=== PATIENT | female | born 1950 | race Caucasian/White ===

== ENCOUNTER → 2017-02-07 | Outpatient (CLI) | payer BC ==
[~2017-02-07] MED LIST: ANT25 PO; ASTNS; LISI-461 PO
== END | disposition home or self-care (01) ==
LOC: C.PAPS 09:23
PROVIDERS: ATTEND Obstetrics & Gynecology
DX: Z01.419 Encounter for gynecological examination (general) (routine) without abnormal findings (principal)

== ENCOUNTER → 2017-06-05 | Outpatient (CLI) | payer OTHER, BC ==
[2017-06-05 12:23] LABS: BASO ABS # 0.05 K/uL (0-0.2); COMPLETE YES; EOS % 4.9 %; HEMATOCRIT 39.7 % (37-47); IG% 0.2 %; LYMPH % 21.3 %; LYMPH ABS # 1.04 K/uL (1.2-3.4); MEAN CELL VOLUME 89.8 fL (80-100); MEAN CORPUSCULAR HEMOGLOBIN 30.3 pg (25-34); MEAN CORPUSCULAR HGB CONC 33.8 g/dl (32-36); MEAN PLATELET VOLUME 9.6 fL (7.4-10.4); NEUT % 62.6 %; PLATELET COUNT 176 K/uL (130-400); RED BLOOD COUNT 4.42 M/uL (4.2-5.4); WHITE BLOOD COUNT 4.89 K/uL (4.8-10.8)
[2017-06-05 13:03] LABS: ALT/SGPT 31 U/L (12-78); AST/SGOT 21 U/L (15-37); BLOOD UREA NITROGEN 16 mg/dl (7-18); BUN/CREATININE RATIO 25.6 (10-20); CALCIUM 9.2 mg/dl (8.5-10.1); CARBON DIOXIDE 29 mmol/L (21-32); CHLORIDE 106 mmol/L (98-107); CREATININE 0.64 mg/dl (0.60-1.20); GLUCOSE 80 mg/dl (70-99); POTASSIUM 3.8 mmol/L (3.5-5.1); SODIUM 140 mmol/L (136-145)
[2017-06-05 13:15] LABS: ALB/GLOB RATIO 1.3 (0.9-2); ALKALINE PHOSPHATASE 63 U/L (45-117); CHOLESTEROL 186 mg/dl (0-200); CHOLESTEROL/HDL RATIO 1.7; HDL CHOLESTEROL 108 mg/dl; LDL CHOLESTEROL CALCULATED 68 mg/dl; TRIGLYCERIDES 49 mg/dl (0-150); VERY LOW DENSITY LIPOPROT CALC 10 mg/dl
[2017-06-05 14:01] LABS: URINE APPEARANCE CLEAR (CLEAR); URINE BILIRUBIN NEG (NEG); URINE COLOR YELLOW; URINE NITRITE NEG (NEG); URINE PH 6.5 (4.5-7.5); URINE SPECIFIC GRAVITY 1.011 (1.000-1.030); UROBILINOGEN NEG (NEG)
[2017-06-05 14:14] LABS: MANUAL MICROSCOPIC REQUIRED? NO; REVIEW REQ? NO
== END | disposition home or self-care (01) ==
LOC: C.LAB1850 10:42
PROVIDERS: ATTEND Internal Medicine Pulmonary Disease
DX: Z00.00 Encounter for general adult medical examination without abnormal findings (principal); I10 Essential (primary) hypertension; M51.36 Other intervertebral disc degeneration, lumbar region; R05 Cough; J45.909 Unspecified asthma, uncomplicated; M70.60 Trochanteric bursitis, unspecified hip

== ENCOUNTER → 2017-11-16 | Outpatient (CLI) | payer OTHER, BC ==
--- NOTE | 2017-11-16 12:03 | DIAGNOSTIC IMAGING REPORT ---
R ELBOW MIN 3 VIEWS ROUTINE CLINICAL HISTORY: Medial epicondylitis. COMPARISON: None FINDINGS: Alignment of the right elbow is anatomic. No joint effusion or fracture is identified. No osseous lesion is identified. Slight irregularity of the lateral epicondyle is chronic. There may be minimal soft tissue swelling overlying the olecranon. Joint spaces are preserved. IMPRESSION: 1. No acute fracture or joint effusion of the right elbow. 2. No significant osseous abnormality of the right elbow. Electronically signed by: Toni Crowley M.D. 11/16/2017 12:01 PM Dictated Date/Time: 11/16/2017 12:00 PM
--- NOTE | 2017-11-16 12:06 | DIAGNOSTIC IMAGING REPORT ---
C-SPINE ROUTINE 4 OR 5 VIEWS CLINICAL HISTORY: 67 years-old Female presenting with M50.90 Disc disorder of cervical [id number] Cervical radiculop. TECHNIQUE: Lateral, bilateral oblique, frontal, and open-mouth odontoid views of the cervical spine were obtained. COMPARISON: 05/11/2014. FINDINGS: Straightening of normal cervical lordosis with slight reversal in the mid cervical spine likely secondary to degenerative change. Mild vertebral body height loss of C5 may also be degenerative in etiology. Mild intervertebral disc height loss at C4-5 through C6-7, where there are disc osteophyte complexes. Posterior bony spurring suspected at C6-7. No radiographic evidence of acute fracture or subluxation. No prevertebral soft tissue swelling. Atlantodental interval normal. No radiographic evidence of significant osseous neural foraminal narrowing. Lateral masses of C1 articulate normally with C2. Lung apices clear. IMPRESSION: Multilevel degenerative changes of the cervical spine with disc osteophyte complexes from C4-5 through C6-7. Electronically signed by: Dagoberto Araiza M.D. 11/16/2017 12:04 PM Dictated Date/Time: 11/16/2017 12:02 PM
== END | disposition home or self-care (01) ==
LOC: C.RAD1850 11:19
PROVIDERS: ATTEND Physician Assistant Medical
DX: M77.00 Medial epicondylitis, unspecified elbow (principal); M50.90 Cervical disc disorder, unspecified, unspecified cervical region; M54.12 Radiculopathy, cervical region

== ENCOUNTER → 2017-11-20 | Outpatient (CLI) | payer OTHER, BC ==
--- NOTE | 2017-11-20 15:29 | MAMMOGRAPHY REPORT ---
BILATERAL DIGITAL SCREENING MAMMOGRAM TOMOSYNTHESIS WITH CAD: 11/20/2017 CLINICAL HISTORY: Routine screening. Patient has no complaints. TECHNIQUE: Breast tomosynthesis in addition to standard 2D mammography was performed. Current study was also evaluated with a Computer Aided Detection (CAD) system. COMPARISON: Comparison is made to exams dated: 11/17/2016 mammogram, 12/01/2015 mammogram, 11/16/2015 mammogram, 11/13/2014 mammogram, 11/12/2013 mammogram, and 11/11/2012 mammogram - [facility]. BREAST COMPOSITION: The tissue of both breasts is extremely dense, which lowers the sensitivity of m ammography. FINDINGS: There are a few scattered benign-appearing microcalcifications in the breasts. No suspicio us mass, architectural distortion or cluster of suspicious microcalcifications is seen. IMPRESSION: ACR BI-RADS CATEGORY 1: NEGATIVE There is no mammographic evidence of malignancy. A 1 year screening mammogram is recommended. The pa tient will receive written notification of the results. Approximately 10% of breast cancers are not detected with mammography. A negative mammographic report should not delay biopsy if a clinically suggestive mass is present. Xenia Pool M.D. ay/:11/20/2017 12:25:50 Scoop Machine Operator: Shireen FIGUEROA)([place]), [facility] letter sent: Normal 1/2 BI-RADS Code: ACR BI-RADS Category 1: Negative
== END | disposition home or self-care (01) ==
LOC: C.MAMM 11:22
PROVIDERS: ATTEND Internal Medicine Pulmonary Disease
DX: Z12.31 Encounter for screening mammogram for malignant neoplasm of breast (principal)

== ENCOUNTER → 2018-03-11 | Outpatient (CLI) | payer OTHER, BC ==
[2018-03-11 13:43] LABS: BLOOD UREA NITROGEN 14 mg/dl (7-18); CREATININE 0.65 mg/dl (0.60-1.20)
== END | disposition home or self-care (01) ==
LOC: C.LAB1850 11:45
PROVIDERS: ATTEND Physician Assistant
DX: R51 Headache (principal); H90.3 Sensorineural hearing loss, bilateral; H81.11 Benign paroxysmal vertigo, right ear

== ENCOUNTER → 2018-03-14 | Outpatient (CLI) | payer OTHER, BC ==
[~2018-03-14] MED LIST changes: +GADAVIST IV PRN
--- NOTE | 2018-03-14 18:15 | DIAGNOSTIC IMAGING REPORT ---
BRAIN COMBO FOR IAC HISTORY: 68 years-old Female R51 [id number] Sensorineural hearing loss (SNHL) of both ears acute headache with hearing loss COMPARISON: None available TECHNIQUE: Multiplanar multisequence MRI of the brain was obtained both with and without the use of 7 mL Gadavist utilizing institutional internal auditory canal protocol. FINDINGS: Large [id number] nutrition counselor localizer images demonstrate no acute abnormality. No restricted diffusion to suggest acute or subacute infarction. Midline structures including the corpus callosum, brainstem, optic chiasm, pituitary and pineal glands appear unremarkable on the sagittal T1 series. There is no cerebellar tonsillar herniation. Degenerative changes of the imaged cervical spine are noted. No acute intracranial hemorrhage, midline shift, abnormal extra-axial collections, hydrocephalus or intracranial mass. No significant brain parenchymal signal abnormalities. Major flow voids at the level of the skull base appear patent. Orbits are symmetric and unremarkable. Mastoid air cells and paranasal sinuses appear generally clear. Scalp, calvarium and soft tissues are also within normal limits. No cerebellar pontine angle mass identified. Courses of the 7th and 8th cranial nerves appear unremarkable. No mass identified within either internal auditory canal. The cisternal portions of the bilateral 5th cranial nerves appear normal. There is no abnormal intra-axial or extra-axial enhancement identified. IMPRESSION: 1. No acute intracranial abnormality identified. 2. Normal appearance of the bilateral internal auditory canals, 7th and 8th cranial nerves without abnormal intra-axial or extra-axial enhancement. The above report was generated using voice recognition software. It may contain grammatical, syntax or spelling errors. Electronically signed by: Ty Perez M.D. 03/14/2018 6:14 PM Dictated Date/Time: 03/14/2018 6:09 PM
== END | disposition home or self-care (01) ==
LOC: C.MRI 16:40
PROVIDERS: ATTEND Physician Assistant
DX: H81.11 Benign paroxysmal vertigo, right ear (principal); H90.3 Sensorineural hearing loss, bilateral; R51 Headache

== ENCOUNTER 2019-01-01 08:11 | Inpatient (IN) ==
--- NOTE | 2018-12-12 09:49 | PAT Medication Instructions ---
Medication Instructions Date of Service December 12, 2018 Home Medications ibuprofen [Advil] 200 - 400 mg PO QID PRN ibuprofen-diphenhydramine [Advil PM] 1 cap PO HS losartan 50 mg PO QAM montelukast [Singulair] 10 mg PO QAM pregabalin [Lyrica] 75 mg PO QPM ASK your surgeon for instructions ibuprofen [Advil] 200 - 400 mg PO QID PRN ibuprofen-diphenhydramine [Advil PM] 1 cap PO HS DO NOT take the morning of surgery losartan 50 mg PO QAM montelukast [Singulair] 10 mg PO QAM Take evening before surgery pregabalin [Lyrica] 75 mg PO QPM Other Notes If you have any questions please call us at [phone] or [phone] or [phone] or [phone]
--- NOTE | 2018-12-12 09:59 | Anesthesiology Consultation ---
Date of Service December 12, 2018 Assessment & Plan (1) Encounter for pre-operative examination: Chart Review Chart Review: Acceptable Risk for Surgery and Patient seen in Pre Admission Testing Teaching & Discussion Pre-Anesthesia Teaching/Discussion Notes: Instructed NPO after midnight before surgery,except medications with 15 cc of water. Medication instructions provided according to the PAT guidelines. History Surgery Operation Date: 01/01/19 10:05 Proposed Procedures p C6 Corpectomy, C5-C7 Anterior Fusion - Smith Thacker DO Height/Weight Height: 5 ft 6.5 in Weight: 52.9 kg Allergies Allergy/AdvReac Type Severity Reaction Status Date / Time No Known Allergies Allergy Unknown PT STATES Verified 12/06/18 11:47 NOT ALLERGIC TO PCN narcotics AdvReac CONSTIPATIO Uncoded 12/12/18 10:18 N Medications Home Medications Medication Instructions Recorded Confirmed Last Taken ibuprofen [Advil] 200 - 400 mg PO QID PRN 12/06/18 12/06/18 Unknown ibuprofen-diphenhydramine cit 1 cap PO HS 12/06/18 12/06/18 Unknown [Advil PM] losartan 50 mg PO QAM 12/06/18 12/06/18 Unknown montelukast [Singulair] 10 mg PO QAM 12/06/18 12/06/18 Unknown pregabalin [Lyrica] 75 mg PO QPM 12/06/18 12/06/18 Unknown doxylamine succinate [Unisom 1 tab PO HS PRN 12/12/18 12/12/18 Unknown (doxylamine)] Past Medical History Medical History Degenerative disc disease Hypertension Spinal stenosis Vertigo Past Surgical History Surgical History Fusion of spine L4 L5 History of arthroscopy B/L SHOULDER FOR BONE SPURS History of facial surgery FACE LIFT History of thumb surgery B/L [facility] JOINT ARTHROPLASTY Past Anesthesia History No Family Hx of Anesthesia Complications and Other "Slow to wake." No known history of reintubation. Patient states issue with narcotic induced constipation previously. History of PONV No Motion Sickness Screening History of Motion Sickness: No Social History Smoking Status: Former smoker tobacco type: cigarettes Smoking cigarettes per day: QUIT 40 YEARS AGO; 2PPD X 3-4 YEARS Do You Dip or Chew Tobacco: No Hx Alcohol Use: Yes Alcohol type: other alcohol intake frequency: holidays/special occasions only Hx Substance Use: No substance use type: does not use Exercise / Class Metabolic Activity II 4-5 Yardwork/Stairs/Walk up hill Review of Systems Cervicalgia with LUE radiculopathy/neuropathy. Patient denies chest pain, shortness of breath, dyspnea on exertion, reflux, cough, wheezing, palpitations. Physical Exam Vital Signs VITALS BP 142/91 P 74 TEMP 98.7 SP02 100%RA RESP 18 Full neck and c-spine range of motion. Cervicalgia with extension. Full TMJ range of motion. TMD 3 finger breaths Mallampati Score 1 Dentition: intact, several crowns Lungs: clear throughout to auscultation Cardiac: regular rate and rhythm, no murmurs noted Spine: normal Carotid arteries: negative bruit Extremities: no edema Testing Electrocardiogram Date: 12/12/18 NSR at 64bpm. ZAIRA. Rightward axis. Chest X-Ray Date: 12/12/18 Findings: + NAD Thoracolumbar scoliosis. Laboratory Results 12/12/18 10:13 12/12/18 10:13 Blood Type O Positive 12/12/18 10:13 Antibody Screen NEGATIVE 12/12/18 10:13 PT 10.4 Seconds (9.0-12.0) 12/12/18 10:13 INR 1.0 (0.9-1.1) 12/12/18 10:13 APTT 26.2 Seconds (21.0-31.0) 12/12/18 10:13 Urine Color Yellow 12/12/18 10:13 Urine Appearance Clear (Clear) 12/12/18 10:13 Urine pH 6.5 (4.5-7.5) 12/12/18 10:13 Ur Specific [place] 1.006 (1.000-1.030) 12/12/18 10:13 Urine Protein Negative (Negative) 12/12/18 10:13 Urine Glucose (UA) Negative (Negative) 12/12/18 10:13 Urine Ketones Negative (Negative) 12/12/18 10:13 Urine Nitrite Negative (Negative) 12/12/18 10:13 Ur Leukocyte Esterase Negative (Negative) 12/12/18 10:13 Surgeon made aware of low WBC.
--- NOTE | 2018-12-12 10:05 | PAT Medication Instructions ---
Medication Instructions Date of Service December 12, 2018 Home Medications ibuprofen [Advil] 200 - 400 mg PO QID PRN ibuprofen-diphenhydramine cit 1 cap PO HS losartan 50 mg PO QAM montelukast [Singulair] 10 mg PO QAM pregabalin [Lyrica] 75 mg PO QPM doxylamine succinate [Unisom 1 tab PO HS PRN Take morning of surgery With a small sip of water, OTHERWISE NOTHING TO EAT OR DRINK AFTER MIDNIGHT: Insulin Dependent Diabetic Patients * Test your blood sugar the morning of surgery * If Blood Sugar is GREATER THAN 150, take HALF of your regular dose of: * If Blood Sugar is LESS THAN 150, DO NOT TAKE ANY: Other Notes If you have any questions please call us at [phone] or [phone] or [phone] or [phone]
--- NOTE | 2018-12-12 10:32 | XRay Report ---
XR chest Pre-admission PA/Lat CLINICAL HISTORY: Preoperative chest COMPARISON STUDY: 05/04/2016 FINDINGS: There is a thoracolumbar scoliosis. The cardiac and mediastinal contours remain normal. The re is no focal pulmonary consolidation. There is no failure. There are no pleural effusions.[ IMPRESSION: No active disease in the chest. Electronically signed by: Mo Colvin M.D. 12/12/2018 10:30 AM
[2018-12-12 11:36] LABS: Basophils # (auto) 0.04 K/uL (0-0.2); Eosinophils # (auto) 0.17 K/uL (0-0.5); Eosinophils % (auto) 4.3 %; Hematocrit (blood only) 41.5 % (37-47); Lymphocytes # (auto) 1.03 K/uL (1.2-3.4); Lymphocytes % (auto) 26.3 %; Mean Corpuscular Hgb Conc 33.7 g/dL (32-36); Mean Corpuscular Volume 87.6 fL (80-100); Mean Platelet Volume 9.9 fL (7.4-10.4); Monocytes # (auto) 0.44 K/uL (0.11-0.59); Monocytes % (auto) 11.2 %; Neutrophils # (auto) 2.24 K/uL (1.4-6.5); Neutrophils % (auto) 57.2 %; Platelet Count 207 K/uL (130-400); RDW Standard Deviation 41.9 fL (36.4-46.3); Red Blood Count 4.74 M/uL (4.2-5.4); White Blood Count 3.92 K/uL (4.8-10.8)
[2018-12-12 11:43] LABS: BUN Creatinine Ratio 21.3 (10-20); Calcium 9.4 mg/dl (8.5-10.1); Est GFR (African American) 106.2; Est GFR (Non-African American) 91.6; Potassium 3.7 mmol/L (3.5-5.1)
[2018-12-12 11:50] LABS: Partial Thromboplastin Time 26.2 Seconds (21.0-31.0); Prothrombin Time 10.4 Seconds (9.0-12.0)
[2018-12-12 11:55] LABS: Appearance Urine Clear (Clear); Bilirubin Urine Negative (Negative); Color Urine Yellow; Glucose Urine UA Negative (Negative); Ketones Urine Negative (Negative); Leukocyte Esterase Urine Negative (Negative); Nitrite Urine Negative (Negative); Protein Urine Negative (Negative); Specific Gravity Urine 1.006 (1.000-1.030); Urobilinogen Urine Negative (Negative); pH Urine 6.5 (4.5-7.5)
[~2019-01-01 08:11] MED LIST changes: +ACETAMINOPHEN 500 MG TAB PO SCH; -ANT25 PO; -ASTNS; +CEFAZOLIN 1000MG 1,000 MG/7.5 ML SYR IV SCH; +CeleBREX 200 MG CAP PO SCH; +GABAPENTIN 300 MG PO SCH; -GADAVIST IV PRN; +HYDROmorphone INJ 2 MG/ML SYR/VIAL ONE; -LISI-461 PO; +LR 15ML/HR IV SCH; +MIDAZOLAM HCL 1 MG/ML 2ML VIAL ONE; +fentaNYL citrate 100 MCG/2 ML VIAL ONE
[2019-01-01] MEDS ORDERED: fentaNYL citrate 100 MCG/2 ML VIAL ONE ×3 (08:21→11:34)
[2019-01-01] MEDS ORDERED: HYDROmorphone INJ 2 MG/ML SYR/VIAL ONE (08:22)
[2019-01-01] MEDS ORDERED: PROPOFOL IV EMULSION 10 MG/ML 20 ML VIAL IV ONE (08:23)
[2019-01-01] MEDS ORDERED: LIDOCAINE HCL 2% 2 ML VIAL/AMP(20MG/ML) INFIL ONE (08:23)
[2019-01-01] MEDS ORDERED: ONDANSETRON INJ 2 MG/ML 2 ML VIAL ONE (08:23)
[2019-01-01] MEDS ORDERED: GLYCOPYRROLATE 0.2 MG/ML VIAL ONE (08:23)
[2019-01-01] MEDS ORDERED: DEXAMETHASONE SOD INJ 4 MG/ML VIAL ONE (08:23)
[2019-01-01] MEDS ORDERED: NEOSTIGMINE METHYLSULFATE 1 MG/ML 10ML VIAL ONE (08:23)
[2019-01-01] MEDS ORDERED: ePHEDrine sulfate 50 MG/ML AMP IV PRN (09:09)
[2019-01-01] MEDS ORDERED: ONDANSETRON INJ 2 MG/ML 2 ML VIAL IV PRN ×2 (09:09→13:34)
[2019-01-01] MEDS ORDERED: fentaNYL citrate 100 MCG/2 ML VIAL IV PRN (09:09)
[2019-01-01] MEDS ORDERED: PROMETHAZINE HCL 12.5 MG in SODIUM CHLORIDE 0.9% 50 ML IV PRN (09:09)
[2019-01-01] MEDS ORDERED: HYDROmorphone INJ 1 MG/ML SYRINGE IV PRN (09:09)
[2019-01-01] MEDS ORDERED: PHENYLEPHRINE 100MCG/ML 5ML SYR IV PRN (09:09)
[2019-01-01] MEDS ORDERED: ATROPINE SULFATE 0.1 MG/ML 10ML SYR IV PRN (09:09)
--- NOTE | 2019-01-01 09:30 | History & Physical Bridge Note ---
Date of Service January 01, 2019 History & Physical Bridge Note I have examined the patient, reviewed the History & Physical and in the interval since the performance of the History & Physical I have noted the following changes of clinical significance: no changes noted
--- NOTE | 2019-01-01 09:31 | History & Physical Report ---
Date of Service January 01, 2019 Assessment & Plan (1) Cervical stenosis of spinal canal: C6 corpectomy fusion C5-C7 Present on Admission?: Yes History of Present Illness Chief Complaint: Neck and arm pain Primary Care Provider: Baltazar Akhtar MD This is a 68-year-old female with chronic persistent neck and arm pain. After failing extensive course of nonoperative care is here for surgical intervention. Allergies Allergy/AdvReac Type Severity Reaction Status Date / Time No Known Allergies Allergy Unknown PT STATES Verified 01/01/19 09:06 NOT ALLERGIC TO PCN narcotics AdvReac CONSTIPATIO Uncoded 01/01/19 09:06 N Home Medications Home Medications Medication Instructions Recorded Confirmed Type ibuprofen [Advil] 200 - 400 mg PO QID PRN 12/06/18 01/01/19 History ibuprofen-diphenhydramine cit 1 cap PO HS 12/06/18 01/01/19 History [Advil PM] losartan 50 mg PO QAM 12/06/18 01/01/19 History montelukast [Singulair] 10 mg PO QAM 12/06/18 01/01/19 History pregabalin [Lyrica] 75 mg PO QPM 12/06/18 01/01/19 History doxylamine succinate [Unisom 1 tab PO HS PRN 12/12/18 01/01/19 History (doxylamine)] Past Med/Surg History Medical History Degenerative disc disease Hypertension Spinal stenosis Vertigo Surgical History Fusion of spine L4 L5 History of arthroscopy B/L SHOULDER FOR BONE SPURS History of facial surgery FACE LIFT History of thumb surgery B/L [facility] JOINT ARTHROPLASTY Social History Current Living Situation: Alone Other Information That Helps Us Care for You: No Feels Safe at Home: Yes Safety Concerns: Feels Safe At This Time Smoking Status: Former smoker Tobacco Type: cigarettes Cigarettes per Day: QUIT 40 YEARS AGO; 2PPD X 3-4 YEARS Do You Dip or Chew Tobacco: No Hx Alcohol Use: Yes Alcohol type: other Alcohol Intake Frequency: holidays/ special occasions only Hx Substance Use: No Beliefs That Will Affect Care: None Preferred Language: Latvian Communication Ability: Effective [employer] Library Media Specialist Required: No Physical Exam 2 Vital Signs (Past 24 Hours): Last Vital Signs Temp 37.1 C 01/01/19 09:20 Pulse 73 01/01/19 09:20 Resp 18 01/01/19 09:20 BP 145/93 H 01/01/19 09:20 Pulse Ox 99 01/01/19 09:20 Results & Data Medications Administered Acetaminophen (Tylenol) 1,000 mg PO PREOP JUANA Stop: 01/01/19 18:00 Last Admin: 01/01/19 09:15 Dose: 1,000 mg Celecoxib (Celebrex) 200 mg PO PREOP JUANA Stop: 01/01/19 18:00 Last Admin: 01/01/19 09:13 Dose: 200 mg Gabapentin (Neurontin) 300 mg PO PREOP JUANA Stop: 01/01/19 18:00 Last Admin: 01/01/19 09:15 Dose: 300 mg Lactated Ringer's (Lr) 1,000 mls @ 15 mls/hr IV .Q24H JUANA Stop: 01/02/19 05:59 Last Admin: 01/01/19 09:00 Dose: 15 mls/hr
[2019-01-01] MEDS ORDERED: BACITRACIN INJ 50,000 UNIT VIAL ONE (09:56)
[2019-01-01] MEDS ORDERED: LARYING-O-JET KIT (LTA) ONE ×2 (10:39→11:26)
[2019-01-01] MEDS ORDERED: PHENYLEPHRINE 100MCG/ML 5ML SYR ONE ×2 (10:39→11:26)
[2019-01-01] MEDS ORDERED: ePHEDrine sulfate 50 MG/ML SYR ONE (11:26)
[2019-01-01] MEDS ORDERED: FLOSEAL HEMOSTATIC MATRIX 10ML TOP ONE (11:32)
--- NOTE | 2019-01-01 11:34 | Operative Report ---
Post Operative Report Pre & Post Diagnosis Operation Date: 01/01/19 10:05 Pre-Op Diagnosis: Cervical spinal stenosis with myeloradiculopathy Post-Op Diagnosis: Same Procedure Operation Date: 01/01/19 10:05 Actual Procedures #1 anterior cervical corpectomy C6. #2 anterior cervical arthrodesis C5-C7. # 3 placement of peek cage 23 mm in height C5-C7. #4 placement of locally harvested morselized autograft combined with DBM and interbody cage. #5 application carmen plate and screws from C5-C7. Surgeon Smith Thacker, Psychiatric Social Worker Supervisor Winifred Leahy Estimated Blood Loss 25 Findings Consistent with Post-Op Diagnosis Specimens None Description of Procedure Patient was met with preoperatively case discussed all questions addressed. After informed consent obtained patient was taken to the operative suite underwent intubation and placed in supine position Cirilo table the head Lopez head of english. All bony prominences well-padded eyes inspected to ensure no external pressure placed upon but this point the anterior cervical spine was prepped and draped in a sterile fashion. The assistance of fluoroscopy to verify the C6 vertebral body and a transverse incision was placed along the right anterior aspect of the cervical spine overlying this region. Sharp dissection the assistance of bipolar cautery was performed down to and exposing the anterior cervical spine from C5-C7. Self retainer retractors placed. Then performed a complete discectomy of C5-6 out to the uncovertebral joints bilaterally followed by C6-7 out to the uncovertebral S bilaterally. [place] distracting pins were then placed in C5 and C7 to distract across the see 6 vertebral body. A complete corpectomy was then performed including removal of all posterior annular fibers longitudinal ligament and bilateral foraminotomies addressing all stenosis. Endplates were then burred to subcortical bleeding bone and a 23 mm peek cage filled with locally harvested morselized autograft and DBM tamped in position. Distraction apparatus was removed all anterior osteophytes produce smooth cortical surface and a carmen plate and screws applied with the assistance of fluoroscopy. Incision was then copious irrigated explored to ensure no damage to surrounding structures remaining bleeding. 10 round LIANNE drain inserted. Incision was then closed with 2 Vicryl in a fashion of 4-0 Monocryl for final skin closure. Steri -Strips sterile dressings placed. Patient will continue to PACU stable disc. Please note Winifred Leahy present throughout the entire procedure involved in patient positioning complex portions of the surgeon Fransen closure. I attest to the content of the Intraoperative Record and any orders documented therein. Any exceptions are noted below.
--- NOTE | 2019-01-01 12:05 | Fluoroscopy Report ---
FL cervical 2-3V CLINICAL HISTORY: C6 CORPECTOMY C5-C7 ANTERIOR FUSION COMPARISON STUDY: Cervical spine radiographs November 16, 2017. FLUOROSCOPY TIME: 11 seconds. FLUOROSCOPIC IMAGES: 2 FINDINGS: These images demonstrate a C6 corpectomy and C5-C7 anterior discectomy and fusion. Hardware is intact. Surgical drain is noted. IMPRESSION: Fluoroscopic images demonstrating a C6 corpectomy and C5-C7 anterior discectomy and fusi on. Electronically signed by: Toni Crowley M.D. 01/01/2019 12:04 PM
--- NOTE | 2019-01-01 13:10 | Anesthesiology Progress Note ---
Date of Service January 01, 2019 Anesthesia Post Procedure Vital Signs Vital Signs: Temp Pulse Pulse Resp BP Pulse Ox 01/01/19 12:55 61 18 139/82 100 01/01/19 12:45 36.8 C 55 L 14 141/87 H 100 01/01/19 12:35 55 L 15 137/81 100 01/01/19 12:25 74 14 143/88 H 100 01/01/19 12:15 55 L 12 135/82 100 01/01/19 12:05 68 19 149/90 H 100 01/01/19 11:55 80 21 154/92 H 100 01/01/19 11:49 36.4 C L 70 16 148/87 H 100 01/01/19 09:20 37.1 C 73 18 145/93 H 99 Pain Intensity Left Arm: Pain Intensity: 3 Neck: Pain Intensity: 0 Notes Mental Status: alert / awake / arousable Patient Amnestic to Procedure: Yes Nausea / Vomiting: adequately controlled Pain: adequately controlled Airway Patency, RR, SpO2: stable & adequate BP & HR: stable & adequate Hydration State: stable & adequate Anesthetic Complications: no major complications apparent
[2019-01-01] MEDS ORDERED: HYDROmorphone INJ 0.5 MG/0.5 ML SYR IV PRN (13:34)
[2019-01-01] MEDS ORDERED: DEXAMETHASONE SOD PHOSPHATE 8 MG in SYRINGE 0 ML IV PRN (13:34)
[2019-01-01] MEDS ORDERED: RACEPINEPHRINE 2.25% NEBU SOLN 0.5 ML VIAL INH PRN (13:34)
[2019-01-01] MEDS ORDERED: MAGNESIUM HYDROXIDE SUSP 30 ML UDC PO PRN (13:34)
[2019-01-01] MEDS ORDERED: ACETAMINOPHEN 1,000 MG/100 ML VIAL IV PRN (13:34)
[2019-01-01] MEDS ORDERED: NALOXONE HCL 0.4 MG/1 ML VIAL/CARP IV PRN (13:34)
[2019-01-01] MEDS ORDERED: DiphenhydrAMINE HCL 50 MG/ML VIAL IV PRN (13:34)
[2019-01-01] MEDS ORDERED: LORazepam 0.5 MG/1 ML VIAL IV PRN (13:34)
[2019-01-01] MEDS ORDERED: LORazepam 0.5 MG TAB PO PRN (13:34)
[2019-01-01] MEDS ORDERED: DO NOT ADMINISTER FLU VACCINE PRN (13:34)
[2019-01-01] MEDS ORDERED: DO NOT ADMINISTER PNEUMOCOCCAL VACCINE PRN (13:34)
[2019-01-01] MEDS: SODIUM CHLORIDE 0.9% 1000ML 1,000 ML IV SCH (14:26)
[2019-01-01] MEDS ORDERED: SCOPOLAMINE 1.5 MG TDSY TD SCH (14:30)
[2019-01-01] MEDS: CHECK SCOPOLAMINE PATCH PLACEMENT SCH (16:08)
[2019-01-01] MEDS: OXYCODONE HCL IR 5 MG TAB (IMMEDIATE RELEASE) PO PRN (16:15)
[2019-01-01] MEDS: CEFAZOLIN 1000MG 1,000 MG/7.5 ML SYR IV SCH (18:48)
[2019-01-01] MEDS: DOCUSATE SODIUM 100 MG CAP PO SCH (20:12)
[2019-01-01] MEDS ORDERED: PREGABALIN 75 MG CAP PO SCH (21:00)
[2019-01-02] MEDS: OXYCODONE HCL IR 5 MG TAB (IMMEDIATE RELEASE) PO PRN ×4 (00:05→15:16)
[2019-01-02] MEDS: CHECK SCOPOLAMINE PATCH PLACEMENT SCH ×2 (00:06→08:56)
[2019-01-02] MEDS: CEFAZOLIN 1000MG 1,000 MG/7.5 ML SYR IV SCH ×2 (02:14→09:07)
[2019-01-02] MEDS ORDERED: Nursing to Pharmacy Communication ONE (04:50)
[2019-01-02] MEDS: SODIUM CHLORIDE 0.9% 1000ML 1,000 ML IV SCH (06:00)
--- NOTE | 2019-01-02 08:50 | Discharge Summary ---
Date of Service January 02, 2019 Admission HPI Per Admitting Provider This is a 68-year-old female with chronic persistent neck and arm pain. After failing extensive course of nonoperative care is here for surgical intervention. Principal Diagnosis Cervical spinal stenosis with myeloradiculopathy. Discharge Data Allergies Allergy/AdvReac Type Severity Reaction Status Date / Time No Known Allergies Allergy Unknown PT STATES Verified 01/01/19 09:06 NOT ALLERGIC TO PCN narcotics AdvReac CONSTIPATIO Uncoded 01/01/19 09:06 N Procedures Performed Operation Date: 01/01/19 10:05 Actual Procedures p C6 Corpectomy, C5-C7 Anterior Fusion(Not Applicable) - Smith Thacker DO Ordered Studies 01/01/19 10:05 FL cervical 2-3V Routine FL fluoroscopy <1hr Routine Hospital Course (1) Cervical stenosis of spinal canal: Patient underwent anterior cervical corpectomy and fusion tolerated as well as taken to the orthopedic floor postoperative. Postop day #1 arm symptoms markedly improved swallowing well. No hoarseness. Subsequently discharged home. Discharge orders and instructions from the chart for further review. Total Time Total Time Spent Total Time Spent (In Minutes): Not applicable Discharge Plan Discharge Items Patient Disposition: Home - Self-Care Reason For Visit: CERVICAL SPINAL STENOSIS Discharge Diagnosis: Cervical spinal stenosis with myeloradiculopathy Discharge Goals: Improve function Activity: Per 'Additional Instructions' section Non-emergency contact: Primary Care Provider Call non-emergency contact if: you have any medication questions Follow-up/Referrals: Baltazar Akhatr MD [Primary Care Provider] - Diet: Regular Addtl Provider Instructions: ACTIVITY RECOMMENDATIONS: SELF CARE INSTRUCTIONS AFTER CERVICAL FUSIONS 1. No smoking. Smoking drastically decreases the chance of a solid fusion. 2. No bending, lifting more than 5 pounds, or twisting (roll like a log when turning in bed). 3. You may shower 3 days after surgery. Thoroughly dry wound. Do not soak in the tub. 4. Cervical collar: Must be worn at all times including sleeping. You may remove the brace only to bath, eat and if you are sitting in a recliner. 5. Please walk as much as you can for exercise. Gradually increase the distance that you walk as your endurance increases. SPECIAL CARE INSTRUCTIONS: VERY IMPORTANT TO READ AND REVIEW A. Do not take any anti-inflammatory medications (i.e. Indocin, Advil, Aspirin, Naprosyn, Aleve, Motrin, etc.) as these may inhibit the chance of a solid fusion. Tylenol is okay to take. B. Your surgical incision has been closed with a cosmetic suture under the skin that will dissolve in about 6 weeks. In 14 days, you can use a pair of clean scissors and cut the suture that is left outside of the skin at the ends of your incision. C. Complications are uncommon, but please contact us if you have any signs or symptoms of: 1. wound infection (fever higher than 102.5 degrees F, redness, separation of wound, drainage, or increasing pain from the incision) 2. blood clots in legs (pain, swelling, redness and warmth in legs) 3. urinary tract infection (fever higher than 102.5 degrees, burning upon urination or increased frequency of urination) 4. nerve problems (inability to walk on your toes or heels, numbness, loss of bowel or bladder control) 5. any other symptoms that concern you. D. Please call the office at if you have any concerns or questions about your operation or recovery. MANAGING PAIN AFTER SPINAL SURGERY 1. Narcotic medication is intended for short-term use and will be provided for surgical pain. Surgical pain usually lasts for a period of 4-6 weeks. Narcotic medication includes Percocet, Vicodin, Darvocet, Tylenol #3 or Lortab. 2. Longer-term pain is more appropriately treated with non-narcotic medication such as Tylenol ES. 3. Muscle spasm is not appropriately treated with narcotics. Muscle relaxers such as Soma, Flexeril or Skelaxin can be used along with Tylenol ES. 4. Remember that we all live with some "aches and pains". This is not unusual or uncommon after an injury or as we get older. 5. We will provide appropriate medication within the normal guidelines of their prescribed use. We will also be very cautious and aware of potential abuse and extended duration of patients' medication needs. 6. Please allow 2-3 days to process refills. Prescriptions will not be mailed but must be picked up at the office. FOLLOW UP VISIT: Keep your scheduled follow-up appointment. Any questions, please call the office at . Prescriptions: New oxycodone 5 mg Tablet 5 mg PO Q4H PRN (Reason: Pain) Qty: 30 RF: 0 Continue losartan 50 mg Tablet 50 mg PO QAM RF: 0 ibuprofen [Advil] 200 mg Tablet 200 - 400 mg PO QID PRN (Reason: Pain) RF: 0 montelukast [Singulair] 10 mg Tablet 10 mg PO QAM RF: 0 pregabalin [Lyrica] 75 mg Capsule 75 mg PO QPM RF: 0 doxylamine succinate [Unisom (doxylamine)] 25 mg Tablet 1 tab PO HS PRN (Reason: Insomnia) RF: 0 Discontinued ibuprofen-diphenhydramine cit [Advil PM] 200-38 mg Tablet 1 cap PO HS RF: 0 Stand-Alone Forms: [facility] Discharge Orders: Discharge Order (Routine); Ordered 01/02/19 Ordered By: Smith Thacker Admission Data Admit Date/Time: 01/01/19 11:38 Attending Provider: Smith Thacker Admit Provider: Smith Thacker Primary Care Provider: Baltazar Akhtar Service: Surgical Services
[2019-01-02] MEDS: DOCUSATE SODIUM 100 MG CAP PO SCH (08:57)
[2019-01-02] MEDS ORDERED: MONTELUKAST SODIUM 10 MG TABLET PO SCH (09:00)
[2019-01-02] MEDS ORDERED: LOSARTAN POTASSIUM 50 MG TAB PO SCH (09:00)
[2019-01-03] MEDS ORDERED: BISACODYL 5 MG TABEC PO PRN (11:37)
[2019-01-03] MEDS ORDERED: POLYETHYLENE (MIRALAX) 17 GM PACK PO PRN (11:37)
--- NOTE | 2019-01-06 12:08 | Coding Query ---
BMI To promote full compliance with coding requirements relating to patient care, physician participation is requested in all cases of director corporate uncertainty. Please assist us with the question(s) below: Please place an X within the parenthesis (x). If other, please document: BMI 18.3 was documented in this record for this patient. If the BMI is significant, please check the box that provides a more specific associated diagnosis: ( ) Overweight/Obese ( ) Obesity ( ) Morbid obesity (x ) Obesity Hypoventilation Syndrome (OHS) ( ) Heathy weight, not significant ( ) Underweight/Thin ( ) Other, please specify Thank you Humera KELLEY
--- NOTE | 2019-01-06 12:19 | Coding Query ---
CODING QUERY To promote full compliance with coding requirements relating to patient care, provider participation is requested in all cases of assistant professor of psychology uncertainty. Please assist us with the question(s) below: Coding Question(s): The Operative Report documents, under the Actual Procedure heading , placement of peek cage 23 mm in height C5 - C7 and the body of the Operative Report documents, " complete discectomy of C5-6 out to the uncovertebral joints bilaterally followed by C6-7 out to the uncovertebral S bilaterally. [place] distracting pins were then placed in C5 and C7 to distract across the see 6 vertebral body. A complete corpectomy was then performed including removal of all posterior annular fibers longitudinal ligament and bilateral foraminotomies addressing all stenosis. Endplates were then burred to subcortical bleeding bone and a 23 mm peek cage filled with locally harvested morselized autograft and DBM tamped in position. ". Please clarify below, regarding placement location of peek cage or if there was more than one cage placed. ( ) There were peek cages placed both at C5-C6 and also at C6-C7 ( ) There was one peek cage placed only C5-C6, not C6-C7 ( ) There was one peek cage placed only C6-C7, not C5-C6 Physician's Response(s): There is one peek cage placed from inferior endplate C5 to superior endplate C7 Thank you Humera Bland Principal Diagnosis: "that condition established after study, to be chiefly responsible for occasioning the admission of the patient to the hospital for care." Co-Existing Principal Diagnosis: "when two or more diagnoses equally meet the criteria for principal diagnosis as determined by the circumstances of admission , diagnostic work up, and/or therapy provided, and the Alphabetic Index, Tabular List, or another coding guideline does not provide sequencing direction , any one of the diagnoses may be sequenced first." "When the physician has documented what appears to be a current diagnosis in the body of the record, but has not included the diagnosis in the final diagnostic statement, the physician should be asked whether the diagnosis should be added." (Source [facility] 2 QTR90. p3-4) ALLIE
== END 2019-01-02 15:24 | disposition home or self-care (01) | DRG 472 ==
LOC: ASU 08:11 → 3E 11:38

== ENCOUNTER 2019-12-24 05:34 | Inpatient (IN) ==
--- NOTE | 2019-12-09 09:19 | Anesthesiology Consultation ---
Date of Service December 09, 2019 Assessment & Plan (1) Encounter for pre-operative examination: Chart Review Chart Review: Acceptable Risk for Surgery and Patient seen in Pre Admission Testing Consults Requested none Teaching & Discussion Pre-Anesthesia Teaching/Discussion Notes: Instructed NPO after midnight before surgery,except medications with 15 cc of water. Medication instructions provided according to the PAT guidelines. Additional Notes Patient with a history of scoliosis as well as cervical spine surgery and L4/L5 surgery in the past. Patient reports that in the past her pain doctor had trouble placing spinal blocks even under fluoro guidance. Discussed with patient spinal and block placement as well as the possible need for GA due to her history of back problems. Patient is hoping spinal placement will be possible but understands that GA may be necessary. Patient tolerated recent GA for c-spine where she was a grade 1 view with a marie. Patient also reports that she awoke after c-spine feeling well rested and tolerated this GA better than her previous GA. Clearance pending... Labs CXR History Surgery Operation Date: 12/24/19 09:30 Proposed Procedures p Left Total Knee Arthroplasty - Celestine Salmeron MD Height/Weight Height: 5 ft 6 in Weight: 54.431 kg Allergies Allergy/AdvReac Type Severity Reaction Status Date / Time NKDA Allergy NKDA Uncoded 12/02/19 09:16 narcotics AdvReac Unknown CONSTIPATIO Uncoded 12/02/19 08:53 N SCENTED PRODUCTS AdvReac Unknown Cough Uncoded 12/02/19 09:15 Medications Home Medications Medication Instructions Recorded Confirmed Last Taken losartan 50 mg PO QAM 12/06/18 12/08/19 12/02/19 montelukast [Singulair] 10 mg PO QAM 12/06/18 12/08/19 12/02/19 amlodipine 5 mg PO QAM 12/02/19 12/08/19 Unknown ibuprofen-diphenhydramine cit 1 cap PO HS PRN 12/02/19 12/08/19 Unknown [Advil PM] Past Medical History Medical History Anxiety CONTROLLED WITHOUT MEDS Basal cell carcinoma (BCC) HX OF History of anesthesia reaction VERY SLOW TO COME OUT OF WITH ANESTHESIA 1 YR AGO WITH CERVICAL FUSION, DID NOT WAKE UP SLOWLY, FASTER WAKE UP THAN USUAL HTN (hypertension) Osteoarthritis Raynaud's disease Scoliosis Vertigo HX OF, NOT CURRENT PROBLEM Exercise / Class Metabolic Activity II 4-5 Yardwork/Stairs/Walk up hill Negative for chest pain or shortness of breath. Past Family History Family History Family/Other Hypertension Hypercholesteremia Diabetes Acute colitis Mother H/O: hysterectomy Hypertension Cardiac disorder Father Cardiac disorder Brother Prostate cancer Hearing loss Past Surgical History Surgical History Fusion of spine L4 L5 Fusion of spine C5-C7 History of arthroscopy B/L SHOULDER FOR BONE SPURS History of colonoscopy History of facial surgery FACE LIFT History of thumb surgery B/L CMC JOINT ARTHROPLASTY Past Anesthesia History No Hx of Anesthesia Complications Sometimes slow to wake up. History of PONV No Hx of PONV Social History Smoking Status: Former smoker tobacco type: cigarettes Smoking cigarettes per day: QUIT 40 YEARS AGO; 2PPD X 3-4 YEARS Do You Dip or Chew Tobacco: No Smoking End Date: 40 YR AGO Hx Alcohol Use: Yes Alcohol type: other alcohol intake frequency: holidays/special occasions only Hx Substance Use: No substance use type: does not use Review of Systems Patient denies history of abnormal bleeding or bleeding disorder. Patient denies active use of anticoagulants other than low dose aspirin. Patient denies numbness, tingling or weakness in lower extremities. (Hx of L4/L5 surgery in past and used to have chronic back pain.) Physical Exam Vital Signs Last Vital Signs Temp 36.3 C L 12/09/19 10:56 Pulse 59 L 12/09/19 10:56 Resp 18 12/09/19 10:56 BP 128/81 12/09/19 10:56 Pulse Ox 100 12/09/19 10:56 Constitutional not obese ENMT Mouth: no TMJ abnormality and oral opening not small Thyromental Distance: > or= 3.5 Finger Breadths Mallampati Class: II Mouth / Teeth: 1. Cap Neck normal visual inspection; neck extension not limited Respiratory normal respiratory effort Auscultation: lungs clear to auscultation bilaterally Cardiovascular Rate/Rhythm: regular rate and regular rhythm Heart Sounds: no murmur Musculoskeletal Spine: + scoliosis Neurologic moves all extremities Psychiatric Orientation: alert and oriented x 3 Testing Electrocardiogram Date: 12/09/19 Findings: + NSR @ (61) Possible left atrial enlargement
[2019-12-09 11:51] LABS: Basophils # (auto) 0.02 K/uL (0-0.2); Basophils % (auto) 0.5 %; Eosinophils # (auto) 0.05 K/uL (0-0.5); Eosinophils % (auto) 1.3 %; Hematocrit (blood only) 41.5 % (37-47); Hemoglobin 14.2 g/dL (12.0-16.0); Lymphocytes # (auto) 0.88 K/uL (1.2-3.4); Lymphocytes % (auto) 22.4 %; Mean Corpuscular Hemoglobin 30.5 pg (25-34); Mean Corpuscular Hgb Conc 34.2 g/dL (32-36); Mean Corpuscular Volume 89.1 fL (80-100); Mean Platelet Volume 9.9 fL (7.4-10.4); Monocytes # (auto) 0.27 K/uL (0.11-0.59); Monocytes % (auto) 6.9 %; Neutrophils # (auto) 2.71 K/uL (1.4-6.5); Neutrophils % (auto) 68.9 %; Platelet Count 204 K/uL (130-400); RDW Standard Deviation 41.9 fL (36.4-46.3); Red Blood Count 4.66 M/uL (4.2-5.4); White Blood Count 3.93 K/uL (4.8-10.8)
[2019-12-09 11:52] LABS: Appearance Urine Clear (Clear); Bilirubin Urine Negative (Negative); Blood Urine Negative (Negative); Color Urine Yellow; Glucose Urine UA Negative (Negative); Ketones Urine Negative (Negative); Leukocyte Esterase Urine Negative (Negative); Nitrite Urine Negative (Negative); Protein Urine Negative (Negative); Specific Gravity Urine 1.007 (1.000-1.030); Urobilinogen Urine Negative (Negative); pH Urine 6.5 (4.5-7.5)
--- NOTE | 2019-12-09 11:52 | XRay Report ---
XR chest Pre-admission PA/Lat CLINICAL HISTORY: Preoperative chest COMPARISON STUDY: 12/12/2018 FINDINGS: The cardiac and mediastinal contours are normal. There is no evidence of focal pulmonary co nsolidation. There is no evidence of failure. No pleural effusions are visualized.[There is a small f ocus of right middle lobe atelectatic change. Postsurgical changes are present within the cervical sp ine, and lumbar spine. There is a scoliosis. IMPRESSION: Linear right middle lobe opacity, likely atelectatic. Otherwise negative chest. ACT 112: Negative or not required by law. Electronically signed by: Mo Colvin M.D. 12/09/2019 11:51 AM
[2019-12-09 11:59] LABS: Albumin Level 4.4 gm/dl (3.4-5.0); Calcium 9.9 mg/dl (8.5-10.1); Creatinine Clr Calc Pharmacy 68.7 ml/min; Est GFR (African American) 106.5; Est GFR (Non-African American) 91.9
[2019-12-09 12:00] LABS: Estimated Average Glucose 114 mg/dl; Hemoglobin A1C 5.6 % (4.5-5.6)
[2019-12-09 12:08] LABS: Partial Thromboplastin Time 25.8 Seconds (21.0-31.0); Prothrombin Time 10.3 Seconds (9.0-12.0)
--- NOTE | 2019-12-09 12:11 | Electrocardiogram Report ---
Test Reason : Blood Pressure : / mmHG Vent. Rate : 061 BPM Atrial Rate : 061 BPM P-R Int : 160 ms QRS Dur : 078 ms QT Int : 434 ms P-R-T Axes : 077 089 065 degrees QTc Int : 436 ms Normal sinus rhythm Possible Left atrial enlargement Borderline ECG When compared with ECG of 12-DEC-2018 10:07, No significant change was found Confirmed by Rhys Calloway ([id number]) on 12/09/2019 12:10:51 PM Referred By: Celestine Salmeron Confirmed By:Rhys Calloway
--- NOTE | 2019-12-23 12:27 | History and Physical Report ---
DATE OF ADMISSION: 12/24/2019 CHIEF COMPLAINT: Chronic left knee pain. HISTORY OF PRESENT ILLNESS: A 69-year-old female patient of Dr. Salmeron'jean marie complaining of chronic left knee pain, longstanding, now progressively getting worse. The patient has failed conservative treatment including intra-articular injections, anti-inflammatories, home exercise program and the use of a sleeve. The patient has increased pain with weightbearing activities and her pain does interfere with her activities of daily living. The patient has been diagnosed with end-stage osteoarthritis per clinical and radiographic exams. The patient wished to proceed with a left total knee arthroplasty. PAST MEDICAL HISTORY: Hypertension, osteoarthritis, spine problems, neck problems, sciatica. SOCIAL HISTORY: Nonsmoker, nondrinker. PAST SURGICAL HISTORY: Spinal fusion x2, bilateral shoulder surgery, CMC joints bilaterally at the thumbs, and a facial lift. FAMILY HISTORY: Noncontributory. REVIEW OF SYSTEMS: Chronic left knee pain and instability. Otherwise, denies any shortness of breath, chest pain, nausea, vomiting or any other joint complaints. MEDICATIONS: Singulair 10 mg daily, losartan 50 mg daily, amlodipine 5 mg daily. ALLERGIES: No known drug allergies. PHYSICAL EXAMINATION: GENERAL: Well-developed, well-nourished 69-year-old female in no acute distress. She is alert and oriented x3 and pleasant. HEENT: Normocephalic, atraumatic. Extraocular motions are intact. Pupils are equal, reactive to light. HEART: Regular rate and rhythm, no murmurs. LUNGS: Clear. ABDOMEN: Soft, nontender, bowel sounds present. EXTREMITIES: Left knee. She has a neutral alignment with a range of motion of 0-140. She has a mild effusion with crepitation with passive range of motion. She has 5/5 strength. NEUROLOGIC: Neurovascularly, she is intact in her left lower extremity. DIAGNOSES: Left knee end-stage osteoarthritis, hypertension, spine problems, neck problems, sciatica. PLAN: The patient was advised of her diagnosis. Indications, risks, benefits, postop course have all been reviewed. The patient wished to proceed with a left total knee arthroplasty. Necessary consent forms, preoperative testing and clearances will be obtained.
[2019-12-24] MEDS ORDERED: TRANEXAMIC ACID 1,000 MG **IV Intra-op IV SCH (06:00)
[2019-12-24] MEDS ORDERED: TRANEXAMIC ACID 1,000 MG **IV Pre-op IV SCH (06:00)
[2019-12-24] MEDS ORDERED: CEFAZOLIN 1000MG 1,000 MG/7.5 ML SYR IV SCH (06:00)
[2019-12-24] MEDS ORDERED: FAMOTIDINE 20 MG TAB PO SCH (06:00)
[2019-12-24] MEDS ORDERED: ACETAMINOPHEN 500 MG TAB PO SCH (06:00)
[2019-12-24] MEDS ORDERED: GABAPENTIN 300 MG CAP PO SCH (06:00)
[2019-12-24] MEDS ORDERED: METOCLOPRAMIDE HCL 10 MG TABLET PO SCH (06:00)
[2019-12-24] MEDS ORDERED: dexAMETHasone 4 MG TAB PO SCH (06:00)
[2019-12-24] MEDS ORDERED: CeleBREX 200 MG CAP PO SCH (06:00)
[2019-12-24] MEDS ORDERED: LR 500ML BOLUS, THEN 15ML/HR IV SCH (06:00)
[2019-12-24] MEDS ORDERED: ROPIVACAINE 0.5% HCL/PF 150 MG, BUPIVACAINE 0.5% MPF 30 ML, EPINEPHrine 30MG/30ML (OR U... INFIL SCH (06:00)
[2019-12-24] MEDS ORDERED: ROPIVACAINE 0.5% 5 MG/ML 30 ML VIAL ONE (06:10)
[2019-12-24] MEDS ORDERED: BUPIVACAINE 0.5 % 5 MG/1 ML PF 10ML VIAL ONE (06:10)
[2019-12-24] MEDS ORDERED: EPINEPHrine INJ 1 MG/ML AMP ONE (06:10)
[2019-12-24] MEDS ORDERED: fentaNYL citrate 100 MCG/2 ML VIAL ONE (06:46)
[2019-12-24] MEDS ORDERED: LIDOCAINE HCL 2% 2 ML VIAL/AMP(20MG/ML) INFIL ONE (06:46)
[2019-12-24] MEDS ORDERED: MIDAZOLAM HCL 1 MG/ML 2ML VIAL ONE (06:46)
[2019-12-24] MEDS ORDERED: KETAMINE HCL INJ 50 MG/ML 10 ML VIAL ONE (06:46)
[2019-12-24] MEDS ORDERED: PROPOFOL IV EMULSION 10 MG/ML 20 ML VIAL IV ONE (06:46)
[2019-12-24] MEDS ORDERED: ORTHO JOINT ANESTHETIC ONE (06:59)
[2019-12-24] MEDS ORDERED: BACITRACIN INJ 50,000 UNIT VIAL ONE (06:59)
--- NOTE | 2019-12-24 07:10 | History & Physical Bridge Note ---
Date of Service December 24, 2019 History & Physical Bridge Note I have examined the patient, reviewed the History & Physical and in the interval since the performance of the History & Physical I have noted the following changes of clinical significance: no changes noted
[2019-12-24] MEDS ORDERED: ONDANSETRON INJ 2 MG/ML 2 ML VIAL IV PRN ×2 (08:00→11:04)
[2019-12-24] MEDS ORDERED: ePHEDrine sulfate 50 MG/ML AMP IV PRN (08:00)
[2019-12-24] MEDS ORDERED: HYDROmorphone INJ 1 MG/ML SYRINGE IV PRN (08:00)
[2019-12-24] MEDS ORDERED: fentaNYL citrate 100 MCG/2 ML VIAL IV PRN (08:00)
[2019-12-24] MEDS ORDERED: ATROPINE SULFATE 0.1 MG/ML 10ML SYR IV PRN (08:00)
--- NOTE | 2019-12-24 09:49 | Post Operative Brief Note ---
Immediate Post Op Note v1 Date of Surgery December 24, 2019 Pre & Post Diagnosis Operation Date: 12/24/19 07:30 Pre-Op Diagnosis: Left Knee Osteoarthritis Post-Op Diagnosis: Left Knee Osteoarthritis I identified the patient and participated in the time-out.: Yes Procedure Operation Date: 12/24/19 07:30 Actual Procedures p Left Total Knee Arthroplasty(Left) - Celestine Salmeron MD Surgeon Celestine Salmeron MD Outside Operator RAEANN Cope Estimated Blood Loss 5 Findings Consistent with Post-Op Diagnosis Specimens Bone cuts Drains Hemovac Drain Anesthesia Type MAC Spinal Regional Complications none Disposition Accompanied Patient To Recovery: No Disposition: Recovery Room Overlapping Procedure I was immediately available: during the entire case.
--- NOTE | 2019-12-24 09:57 | Operative Report ---
Post Operative Report Pre & Post Diagnosis Operation Date: 12/24/19 07:30 Pre-Op Diagnosis: Left Knee Osteoarthritis Post-Op Diagnosis: Left Knee Osteoarthritis I identified the patient and participated in the time-out.: Yes Procedure Operation Date: 12/24/19 07:30 Actual Procedures p Left Total Knee Arthroplasty(Left) - Celestine Salmeron MD Surgeon Celestine Salmeron MD Foaming Machine Operator RAEANN Cope Estimated Blood Loss 5 Findings Consistent with Post-Op Diagnosis Specimens Bone cuts Drains 2 Hemovac Anesthesia Type MAC Spinal Regional Complications none Disposition Accompanied Patient To Recovery: No Disposition: Recovery Room Indications 69-year-old female with bilateral knee osteoarthritis end-stage. She has tricompartmental osteoarthritis but [id number] patellofemoral joint bilateral and left knee has significant bone loss patella with ridging. Description of Procedure Patient taken to the operating room placed supine on the operating table and anesthetized under spinal MAC regional anesthesia. Exam under anesthesia demonstrated lateral tracking patella with patellofemoral crepitation and full range of motion and moderately large knee effusion. A pneumatic tourniquet was placed about the thigh of the left lower extremity. The left lower extremity was prepped and draped in usual fashion. Leg was elevated exsanguinated with an Esmarch bandage and the pneumatic was raised to 275 mm mercury. An anterior incision was made across the left knee. The skin was incised longitudinally s ubcutaneous flaps were elevated and an incision was made through the medial retinaculum extending up into the mid third of the quadriceps tendon and extended down to the medial tibial tubercle. Intra-articular findings demonstrated severe patellofemoral osteoarthritis with ridging and eburnated bone with bone loss lateral facet patella with tricompartmental DJD grade 2-3 medial and lateral compartment DJD with tricompartmental osteophytes. The knee was exposed by excising the infrapatellar fat pad, excising the meniscal remnants and anterior cruciate ligament. Any inflamed synovial tissue was resected. The fat pad over the anterior femur was resected for placement of the component in that area. The lateral synovial bands were release. No particular releases were performed to balance ligaments as they were adequately balanced. The femur was exposed. The custom femoral cutting block was pinned in position. The distal femoral cutting block was applied. The distal femoral cut was made with the oscillating saw. The size 8, 4-in-1 cutting block was placed. The anterior and posterior chamfer cuts were made. The bone quality was soft consistent with osteopenia or osteoporosis. The knee was extended and a subperiosteal peel lateral release was performed around the patella. The patella width was measured and width was reproduced using freehand cut technique. The cut was made just about a millimeter above the level of the bone loss leaving a small ridge of eburnated bone that we could fill with cement in order not to overly thin the patella due to bone loss noted. The 35 x 9 millimeter symmetrical patella was used. 3 drill holes are made for the pegs. The tibia was exposed. A custom tibial cutting block was positioned and drill holes were made for the cutting guide. Cutting guide was placed and the proximal cut was made with the oscillating saw. All osteophytes were resected. The lamina ticket dispatcher was used to assess ligamentous balance and the ligaments w ere balanced in extension and flexion. The tibia was reexposed and measured for a size D tibial component. This was externally rotated in line with the tibial tubercle and the fixation pins were drilled. The proximal tibia was fashioned with the drill and punch. The size 8 femoral trial was inserted. The trial MC inserts were used. The 10 mm insert gave balanced ligaments through full range of motion. The patella tracked centrally. the trials were removed. The orthomix anesthetic cocktail was injected per protocol. The knee was then copiously irrigated with pulsatile lavage antibiotic solution with bacitracin. The final components were cemented with Simplex cement. The final components were 8 narrow CR femoral component, D tibia, 10 mm medial congruent tibial polyethylene, 35 x 9 patella. While the cement cured with the knee in full extension the Betadine soak was used per protocol. After the cement cured, the knee joint was copiously irrigated with antibiotic solution with bacitracin. 2 drains were brought out laterally and connected to a Hemovac. The quadriceps tendon and medial retinaculum were closed with interrupted [id number] #1 Vicryl sutures. The knee was taken through a full range of motion and repair was secure. The subcutaneous tissues were closed with 2-0 Vicryl sutures and skin was closed with helena. Sterile dressings were applied and the patient tolerated the procedure well. Carlo CARY my physician ophthalmic assistant, assisted in soft tissue retraction instrument management leg positioning the closure and will participate in the postoperative care of the patient. I attest to the content of the Intraoperative Record and any orders documented therein. Any exceptions are noted below.
--- NOTE | 2019-12-24 10:15 | XRay Report ---
TWO VIEWS LEFT KNEE CLINICAL HISTORY: Postoperative examination. FINDINGS: AP and crosstable lateral portable views of the left knee are obtained. A left knee arthrop lasty is in near anatomic alignment. There has been undersurface remodeling of the patella. No acute fracture is seen. There are expected postoperative changes around the knee including skin clips, a ruiz rgical drain, soft tissue edema, and subcutaneous gas. IMPRESSION: Expected postoperative changes status post left knee arthroplasty. No acute fracture is s een. ACT 112: Negative or not required by law. Electronically signed by: Gregg Thakkar M.D. 12/24/2019 10:14 AM
--- NOTE | 2019-12-24 10:35 | Anesthesiology Progress Note ---
Date of Service December 24, 2019 Anesthesia Post Procedure Vital Signs Vital Signs: Temp Pulse Pulse Resp BP Pulse Ox 12/24/19 10:25 36.7 C 72 19 112/76 100 12/24/19 10:15 71 20 113/74 100 12/24/19 10:05 71 19 112/70 100 12/24/19 09:56 36.7 C 79 16 113/64 100 12/24/19 05:56 37.1 C 80 16 150/96 H 96 Transfer of Care Handoff Completed per policy Notes Mental Status: alert / awake / arousable and participated in evaluation Patient Amnestic to Procedure: Yes Nausea / Vomiting: adequately controlled Pain: adequately controlled Airway Patency, RR, SpO2: stable & adequate BP & HR: stable & adequate Hydration State: stable & adequate Neuraxial Anesthesia: was administered and sensory block is resolving Anesthetic Complications: no major complications apparent and Pt Satisfied with anesthetic care
[2019-12-24] MEDS ORDERED: bisacodyL 10 MG SUPP PR PRN (11:04)
[2019-12-24] MEDS ORDERED: HYDROmorphone INJ 0.5 MG/0.5 ML SYR IV PRN (11:04)
[2019-12-24] MEDS ORDERED: NALOXONE HCL 0.4 MG/1 ML VIAL/CARP IV PRN (11:04)
[2019-12-24] MEDS: SODIUM CHLORIDE 0.9% 1000ML 1,000 ML IV SCH ×2 (12:07→21:54)
--- NOTE | 2019-12-24 13:14 | Consultation ---
Date of Consultation December 24, 2019 Assessment & Plan (1) Status post left knee replacement: 69yo female s/p left TKA performed today. Surgery well tolerated, no complications identified, patient doing well postoperatively -Pain, nausea and bowel regimen per primary team -Activity instruction per primary team Present on Admission?: Yes (2) Hypertension: Blood pressure well controlled. Currently 116/70 -Continue Amlodipine and Losartan -Continue to monitor Present on Admission?: Yes (3) Asthma: Chronic. Stable. No respiratory complaints at present. Pulmonary exam unremarkable. CXR with NAD. -Continue Singulair Thank you for this consult. Please do not hesitate to contact us with any additional questions or concerns. Hospitalist team will sign off. History of Present Illness Reason for Consultation: Post-operative medical management Attending Physician: Celestine Salmeron MD History of Present Illness Tabitha Song is a pleasant 69yo C female with history of HTN, end stage OA s/p left TKA performed today by Dr. Salmeron. Procedure was performed under MAD/spinal regional anesthesia. Well tolerated with no immediate complications identified. Minimal blood loss. Patient is currently doing well. Sitting up in bed watching TV. Pain is well controlled. She denies nausea. She was up to the restroom and sat in a chair this afternoon without difficulty. +PO, +flatus. No BM yet. No additional complaints at this time. Allergies Allergy/AdvReac Type Severity Reaction Status Date / Time NKDA Allergy NKDA Uncoded 12/24/19 05:54 narcotics AdvReac Unknown CONSTIPATIO Uncoded 12/24/19 05:54 N SCENTED PRODUCTS AdvReac Unknown Cough Uncoded 12/24/19 05:54 Home Medications Home Medications Medication Instructions Recorded Confirmed Type losartan 50 mg PO QAM 12/06/18 12/24/19 History montelukast [Singulair] 10 mg PO QAM 12/06/18 12/24/19 History amlodipine 5 mg PO QAM 12/02/19 12/24/19 History ibuprofen-diphenhydramine cit 1 cap PO HS PRN 12/02/19 12/24/19 History [Advil PM] Patient History Medical History Anxiety CONTROLLED WITHOUT MEDS Basal cell carcinoma (BCC) HX OF History of anesthesia reaction VERY SLOW TO COME OUT OF WITH ANESTHESIA 1 YR AGO WITH CERVICAL FUSION, DID NOT WAKE UP SLOWLY, FASTER WAKE UP THAN USUAL HTN (hypertension) Osteoarthritis Raynaud's disease Scoliosis Vertigo HX OF, NOT CURRENT PROBLEM Surgical History Fusion of spine L4 L5 Fusion of spine C5-C7 History of arthroscopy B/L SHOULDER FOR BONE SPURS History of colonoscopy History of facial surgery FACE LIFT History of thumb surgery B/L [facility] JOINT ARTHROPLASTY Family History Family/Other Hypertension Hypercholesteremia Diabetes Acute colitis Mother H/O: hysterectomy Hypertension Cardiac disorder Father Cardiac disorder Brother Prostate cancer Hearing loss Social History Preferred Language: Georgian Communication Ability: Effective Glue Specialty Supervisor Required: No Beliefs That Will Affect Care: None Current Living Situation: Alone Other Information That Helps Us Care for You: No Feels Safe at Home: Yes Smoking Status: Former smoker Tobacco Type: cigarettes ; Cigarettes Per Day: QUIT 40 YEARS AGO; 2PPD X 3-4 YEARS ; Do You Dip or Chew Tobacco: No ; Smoking End Date: 40 YR AGO ; Second Hand Exposure: No ; Hx Alcohol Use: Yes Alcohol type: other Hx Substance Use: No Review of Systems Review of Systems: All systems reviewed & are unremarkable except as noted in HPI & below Physical Exam Physical Exam: General: patient resting comfortably, NAD, non-toxic in appearance, AA&O x 4 Skin: warm, dry, intact, no rashes or lesions HEENT: NC/AT, PERRL, EOMI, anicteric sclera, conjunctiva without injection, external ear normal to inspection and nontender, nares patent, moist mucus membranes, dentition intact, no oropharyngeal lesions, neck supple, trachea midline, no LAD, no thyromegaly, no JVD Heart: +S1/S2, regular, bradycardic, no m/r/g Lungs: equal air entry bilaterally, no rales/rhonchi/wheezes Abd: +BS, soft, NT/ND, no masses/organomegaly/ascites Ext: warm, 2+ pulses in UE/LE bilaterally, no clubbing/cyanosis or edema Neuro: nonfocal, patient AA&O x 4, speech intact, no facial droop, moving all extremities on command with equal strength 5/5 Results & Data Vital Signs (Past 12 Hours) Vital Signs Temp Pulse Pulse Resp BP Pulse Ox 12/24/19 13:00 66 16 124/71 100 12/24/19 12:09 36.6 C 64 16 126/72 98 12/24/19 11:20 60 16 118/73 100 12/24/19 11:13 36.5 C 65 16 123/73 100 12/24/19 10:35 36.7 C 64 20 108/69 100 12/24/19 10:25 36.7 C 72 19 112/76 100 12/24/19 10:15 71 20 113/74 100 12/24/19 10:05 71 19 112/70 100 12/24/19 09:56 36.7 C 79 16 113/64 100 12/24/19 05:56 37.1 C 80 16 150/96 H 96 Laboratory Results Lab Results 12/09/19 12/09/19 12/09/19 Range/Units 11:05 11:05 11:05 WBC 3.93 L (4.8-10.8) K/uL RBC 4.66 (4.2-5.4) M/uL Hgb 14.2 (12.0-16.0) g/dL Hct 41.5 (37-47) % MCV 89.1 (80-100) fL MCH 30.5 (25-34) pg MCHC 34.2 (32-36) g/dL RDW Std Deviation 41.9 (36.4-46.3) fL RDW Coeff of Sulema 13.0 (11.5-14.5) % Plt Count 204 (130-400) K/uL MPV 9.9 (7.4-10.4) fL Immature Gran % (Auto) 0.0 % Neut % (Auto) 68.9 % Lymph % (Auto) 22.4 % Wheeler % (Auto) 6.9 % Eos % (Auto) 1.3 % Baso % (Auto) 0.5 % Immature Gran # (Auto) 0.00 (0.00-0.02) K/uL Neut # (Auto) 2.71 (1.4-6.5) K/uL Lymph # (Auto) 0.88 L (1.2-3.4) K/uL Wheeler # (Auto) 0.27 (0.11-0.59) K/uL Eos # (Auto) 0.05 (0-0.5) K/uL Baso # (Auto) 0.02 (0-0.2) K/uL PT 10.3 (9.0-12.0) Seconds INR 1.0 (0.9-1.1) APTT 25.8 (21.0-31.0) Seconds PTT Ratio 1.0 Sodium 136 (136-145) mmol/L Potassium 4.0 (3.5-5.1) mmol/L Chloride 102 (98-107) mmol/L Carbon Dioxide 29 (21-32) mmol/L Anion Gap 5.0 (3-11) BUN 12 (7-18) mg/dl Creatinine 0.65 (0.6-1.2) mg/dl Est Cr Clr Drug Dosing 68.7 ml/min Est GFR ( Amer) 106.5 Est GFR (Non-Af Amer) 91.9 BUN/Creatinine Ratio 18.0 (10-20) Glucose 94 (70-99) mg/dl Estimat Average Glucose mg/dl Hemoglobin A1c (4.5-5.6) % Calcium 9.9 (8.5-10.1) mg/dl Albumin 4.4 (3.4-5.0) gm/dl Urine Color Urine Appearance (Clear) Urine pH (4.5-7.5) Ur Specific [place] (1.000-1.030) Urine Protein (Negative) Urine Glucose (UA) (Negative) Urine Ketones (Negative) Urine Blood (Negative) Urine Nitrite (Negative) Urine Bilirubin (Negative) Urine Urobilinogen (Negative) Ur Leukocyte Esterase (Negative) Blood Type Antibody Screen 12/09/19 12/09/19 12/09/19 Range/Units 11:05 11:05 Unknown WBC (4.8-10.8) K/uL RBC (4.2-5.4) M/uL Hgb (12.0-16.0) g/dL Hct (37-47) % MCV (80-100) fL MCH (25-34) pg MCHC (32-36) g/dL RDW Std Deviation (36.4-46.3) fL RDW Coeff of Sulema (11.5-14.5) % Plt Count (130-400) K/uL MPV (7.4-10.4) fL Immature Gran % (Auto) % Neut % (Auto) % Lymph % (Auto) % Wheeler % (Auto) % Eos % (Auto) % Baso % (Auto) % Immature Gran # (Auto) (0.00-0.02) K/uL Neut # (Auto) (1.4-6.5) K/uL Lymph # (Auto) (1.2-3.4) K/uL Wheeler # (Auto) (0.11-0.59) K/uL Eos # (Auto) (0-0.5) K/uL Baso # (Auto) (0-0.2) K/uL PT (9.0-12.0) Seconds INR (0.9-1.1) APTT (21.0-31.0) Seconds PTT Ratio Sodium (136-145) mmol/L Potassium (3.5-5.1) mmol/L Chloride (98-107) mmol/L Carbon Dioxide (21-32) mmol/L Anion Gap (3-11) BUN (7-18) mg/dl Creatinine (0.6-1.2) mg/dl Est Cr Clr Drug Dosing ml/min Est GFR ( Amer) Est GFR (Non-Af Amer) BUN/Creatinine Ratio (10-20) Glucose (70-99) mg/dl Estimat Average Glucose 114 mg/dl Hemoglobin A1c 5.6 (4.5-5.6) % Calcium (8.5-10.1) mg/dl Albumin (3.4-5.0) gm/dl Urine Color Yellow Urine Appearance Clear (Clear) Urine pH 6.5 (4.5-7.5) Ur Specific [place] 1.007 (1.000-1.030) Urine Protein Negative (Negative) Urine Glucose (UA) Negative (Negative) Urine Ketones Negative (Negative) Urine Blood Negative (Negative) Urine Nitrite Negative (Negative) Urine Bilirubin Negative (Negative) Urine Urobilinogen Negative (Negative) Ur Leukocyte Esterase Negative (Negative) Blood Type O Positive Antibody Screen NEGATIVE Diagnostic Findings XR chest Pre-admission PA/Lat CLINICAL HISTORY: Preoperative chest COMPARISON STUDY: 12/12/2018 FINDINGS: The cardiac and mediastinal contours are normal. There is no evidence of focal pulmonary consolidation. There is no evidence of failure. No pleural effusions are visualized.[There is a small focus of right middle lobe atelectatic change. Postsurgical changes are present within the cervical spine, and lumbar spine. There is a scoliosis. IMPRESSION: Linear right middle lobe opacity, likely atelectatic. Otherwise negative chest. ACT 112: Negative or not required by law. Electronically signed by: Mo Colvin M.D. 12/09/2019 11:51 AM Dictated: 12/09/19 1149 Transcribed: 12/09/19 1149 TWO VIEWS LEFT KNEE CLINICAL HISTORY: Postoperative examination. FINDINGS: AP and crosstable lateral portable views of the left knee are obtained. A left knee arthroplasty is in near anatomic alignment. There has been undersurface remodeling of the patella. No acute fracture is seen. There are expected postoperative changes around the knee including skin clips, a surgical drain, soft tissue edema, and subcutaneous gas. IMPRESSION: Expected postoperative changes status post left knee arthroplasty. No acute fracture is seen. ACT 112: Negative or not required by law. Electronically signed by: Gregg Thakkar M.D. 12/24/2019 10:14 AM PG Care Time/CCT Total # of Minutes Spent Total Time Spent with Patient: Total time spent is greater than 50% in coordination of care (as documented) at patient's floor/unit and/or counseling patient: Coding Level of Care Code 20885 Inpt Consult Level 3 Diagnoses Status post left knee replacement Z96.652 Hypertension I10 Hypertension type: essential hypertension Asthma J45.20 Asthma severity: mild Asthma persistence: intermittent Asthma complication type: uncomplicated (1) Hypertension Hypertension type: essential hypertension Qualified Code(s): I10 - Essential (primary) hypertension (2) Asthma Asthma severity: mild Asthma persistence: intermittent Asthma complication type: uncomplicated Qualified Code(s): J45.20 - Mild intermittent asthma, uncomplicated
[2019-12-24] MEDS: ACETAMINOPHEN 500 MG TAB PO SCH ×2 (13:27→21:01)
[2019-12-24] MEDS: OXYCODONE HCL IR 5 MG TAB (IMMEDIATE RELEASE) PO PRN (16:47)
[2019-12-24] MEDS: CEFAZOLIN 1000MG 1,000 MG/7.5 ML SYR IV SCH (16:49)
[2019-12-24] MEDS: ASPIRIN 81 MG ECTAB PO SCH (20:56)
[2019-12-24] MEDS: DOCUSATE SODIUM 100 MG CAP PO SCH (20:56)
[2019-12-24] MEDS: SENNA 8.6 MG TAB PO SCH (20:56)
[2019-12-24] MEDS: CeleBREX 200 MG CAP PO SCH (20:56)
[2019-12-25] MEDS: CEFAZOLIN 1000MG 1,000 MG/7.5 ML SYR IV SCH (00:32)
[2019-12-25 05:59] LABS: Hematocrit (blood only) 32.2 % (37-47); Hemoglobin 10.9 g/dL (12.0-16.0); Mean Corpuscular Hemoglobin 29.9 pg (25-34); Mean Corpuscular Hgb Conc 33.9 g/dL (32-36); Mean Corpuscular Volume 88.2 fL (80-100); Mean Platelet Volume 9.5 fL (7.4-10.4); Platelet Count 151 K/uL (130-400); RDW Coefficient of Variation 12.9 % (11.5-14.5); RDW Standard Deviation 42.1 fL (36.4-46.3); Red Blood Count 3.65 M/uL (4.2-5.4); White Blood Count 6.02 K/uL (4.8-10.8)
[2019-12-25] MEDS: ACETAMINOPHEN 500 MG TAB PO SCH ×3 (06:13→21:13)
[2019-12-25 06:33] LABS: BUN Creatinine Ratio 21.3 (10-20); Calcium 8.5 mg/dl (8.5-10.1); Creatinine Clr Calc Pharmacy 82.7 ml/min; Est GFR (African American) 113.2; Est GFR (Non-African American) 97.6; Potassium 3.9 mmol/L (3.5-5.1)
[2019-12-25] MEDS: MAGNESIUM HYDROXIDE SUSP 30 ML UDC PO PRN (07:53)
--- NOTE | 2019-12-25 08:03 | Anesthesiology Progress Note ---
Date of Service December 25, 2019 Anesthesia Post Procedure Vital Signs Vital Signs: Temp Pulse Pulse Resp BP BP Pulse Ox 12/25/19 07:11 36.6 C 57 L 18 146/75 H 100 12/25/19 04:00 36.7 C 65 16 120/74 99 12/25/19 00:01 36.5 C 59 L 16 117/71 98 12/24/19 15:43 36.9 C 56 L 16 116/70 99 12/24/19 13:58 36.3 C L 80 16 109/68 98 12/24/19 13:00 66 16 124/71 100 12/24/19 12:09 36.6 C 64 16 126/72 98 12/24/19 11:20 60 16 118/73 100 12/24/19 11:13 36.5 C 65 16 123/73 100 12/24/19 10:35 36.7 C 64 20 108/69 100 12/24/19 10:25 36.7 C 72 19 112/76 100 12/24/19 10:15 71 20 113/74 100 12/24/19 10:05 71 19 112/70 100 12/24/19 09:56 36.7 C 79 16 113/64 100 Pain Intensity Left Knee: Pain Intensity: 2 Notes Mental Status: alert / awake / arousable and participated in evaluation Patient Amnestic to Procedure: Yes Nausea / Vomiting: adequately controlled Pain: adequately controlled Airway Patency, RR, SpO2: stable & adequate BP & HR: stable & adequate Hydration State: stable & adequate Neuraxial Anesthesia: sensory block resolved Anesthetic Complications: no major complications apparent
[2019-12-25] MEDS: MONTELUKAST SODIUM 10 MG TABLET PO SCH (08:54)
[2019-12-25] MEDS: MULTIVITAMIN TAB PO SCH (08:54)
[2019-12-25] MEDS: LOSARTAN POTASSIUM 50 MG TAB PO SCH (08:54)
[2019-12-25] MEDS: AMLODIPINE BESYLATE 5 MG TAB PO SCH (08:54)
[2019-12-25] MEDS: ASPIRIN 81 MG ECTAB PO SCH ×2 (08:55→21:13)
[2019-12-25] MEDS: CeleBREX 200 MG CAP PO SCH ×2 (08:55→21:14)
[2019-12-25] MEDS: DOCUSATE SODIUM 100 MG CAP PO SCH ×2 (08:55→21:13)
--- NOTE | 2019-12-25 12:32 | Orthopedic Progress Note ---
Date of Service December 25, 2019 Assessment & Plan (1) Status post left knee replacement: POD #1, Left TKA PT/ OT DVT porph ASA D/ Planning- HOme w OPPT As per medicine. Subjective POD #1, Doing well. Denies SOB, CP, N/N. Pain controlled well. Wishes OPPT on d/C. Physical Exam Physical Exam: Left knee dressings c/d/i, no drainage. Toes/ ankle mobile. No calf tenderness A&Ox3. Results & Data ([facility]) Vital Signs (Past 12 Hours) Vital Signs Temp Pulse Resp BP BP Pulse Ox 12/25/19 07:11 36.6 C 57 L 18 146/75 H 100 12/25/19 04:00 36.7 C 65 16 120/74 99
--- NOTE | 2019-12-25 14:07 | Communication Note ---
Date of Service: December 25, 2019 Stopped by to see Ms. Song. Pain in knee but tolerable with pain medications. Able to ambulate with walker. Plans for OPPT. Tolerating diet. +Flatus but no BM. Currently about to receive enema. Only concern currently is that she would like something to sleep tonight. She denies having tried benadryl or vistaril in the past. Would like to avoid me latonin. Agreeable to try small dose of vistaril this evening. Will order. Please feel free to reach out with any questions/concerns as hospitalist service signed off yesterday.
[2019-12-25] MEDS: SENNA 8.6 MG TAB PO SCH (21:14)
[2019-12-26] MEDS: OXYCODONE HCL IR 5 MG TAB (IMMEDIATE RELEASE) PO PRN ×2 (00:01→05:45)
[2019-12-26] MEDS: ACETAMINOPHEN 500 MG TAB PO SCH (05:44)
[2019-12-26 06:06] LABS: Hematocrit (blood only) 29.7 % (37-47); Mean Corpuscular Hemoglobin 29.8 pg (25-34); Mean Corpuscular Hgb Conc 33.7 g/dL (32-36); Mean Corpuscular Volume 88.4 fL (80-100); Platelet Count 143 K/uL (130-400); RDW Coefficient of Variation 13.2 % (11.5-14.5); RDW Standard Deviation 42.7 fL (36.4-46.3); Red Blood Count 3.36 M/uL (4.2-5.4)
[2019-12-26 06:37] LABS: BUN Creatinine Ratio 24.7 (10-20); Calcium 8.4 mg/dl (8.5-10.1); Creatinine Clr Calc Pharmacy 70.9 ml/min; Est GFR (African American) 107.6; Est GFR (Non-African American) 92.8; Potassium 4.1 mmol/L (3.5-5.1)
[2019-12-26] MEDS: MAGNESIUM HYDROXIDE SUSP 30 ML UDC PO PRN (07:24)
--- NOTE | 2019-12-26 07:51 | Orthopedic Progress Note ---
Date of Service December 26, 2019 Assessment & Plan (1) Status post left knee replacement: POD #2, Left TKA PT/ OT DVT porph ASA D/ Planning- Home w OPPT today As per medicine. Subjective POD #2, Doing well. Denies SOB, CP, N/N. Pain controlled well. Wishes OPPT on d/C. Physical Exam Physical Exam: Left knee silverlon c/d/i. No drainage. Toes/ ankle mobile. no calf tenderness. A&Ox3. Results & Data ([facility]) Vital Signs (Past 12 Hours) Vital Signs Temp Pulse Resp BP Pulse Ox 12/26/19 06:05 36.6 C 54 L 16 94/59 L 100 12/26/19 00:05 36.8 C 67 16 124/71 99
[2019-12-26] MEDS: ASPIRIN 81 MG ECTAB PO SCH (08:01)
[2019-12-26] MEDS: AMLODIPINE BESYLATE 5 MG TAB PO SCH (08:01)
[2019-12-26] MEDS: CeleBREX 200 MG CAP PO SCH (08:01)
[2019-12-26] MEDS: MONTELUKAST SODIUM 10 MG TABLET PO SCH (08:02)
[2019-12-26] MEDS: LOSARTAN POTASSIUM 50 MG TAB PO SCH (08:03)
[2019-12-26] MEDS: MULTIVITAMIN TAB PO SCH (08:03)
[2019-12-26] MEDS: DOCUSATE SODIUM 100 MG CAP PO SCH (08:04)
--- NOTE | 2019-12-30 13:52 | Discharge Summary ---
HISTORY OF PRESENT ILLNESS: This is a 69-year-old female patient of Dr. Salmeron'jean marie complaining of chronic left knee pain, longstanding, progressively getting worse. The patient failed conservative treatment and elected to proceed with a left total knee arthroplasty. PAST MEDICAL HISTORY: Hypertension, osteoarthritis, spine problems, neck problems, sciatica. POSTOPERATIVE COURSE: The patient underwent a left total knee arthroplasty on 12/24/2019. She was followed closely with medical consultation, physical therapy, pain control and DVT prophylaxis in the form of aspirin. The patient did well postoperatively with no issues and was discharged home on postoperative day #2. PHYSICAL EXAMINATION: On discharge, left knee Silverlon dressing was clean, dry and intact. There was no redness or drainage. She had no calf tenderness. Negative Homans sign. Toes and ankle were mobile. Neurologically and neurovascularly she was intact in her left lower extremity. DIAGNOSES: Status post left total knee arthroplasty, hypertension, osteoarthritis, spine problems, neck problems, sciatica. PLAN: The patient was discharged home with outpatient physical therapy. She will continue her preadmission medications with the addition of pain medications and aspirin for DVT prophylaxis. She will follow up as scheduled as an outpatient. ALLIE
== END 2019-12-26 11:12 | disposition home or self-care (01) | DRG 470 ==
LOC: ASU 05:34 → 3E 10:01

== ENCOUNTER 2020-10-20 07:42 | Observation (INO) ==
--- NOTE | 2020-09-17 12:19 | PAT Medication Instructions ---
Medication Instructions Date of Service September 17, 2020 Home Medications Medication Instructions Recorded alendronate 70 mg tablet 70 mg PO WEEKLY #10 tab 04/05/20 losartan 50 mg tablet 50 mg PO QAM #30 tab 04/12/20 montelukast 10 mg tablet 10 mg PO QAM #30 tab 04/12/20 triamcinolone acetonide 0.1 % 1 applic TOPICAL BID #30 g 09/15/20 topical cream alendronate 70 mg tablet 70 mg PO WEEKLY losartan 50 mg tablet 50 mg PO QAM montelukast 10 mg tablet 10 mg PO QAM celecoxib 200 mg capsule 200 mg PO QAM calcium carbonate [Calcium 600] 600 mg PO QAM cholecalciferol (vitamin D3) [Vitamin D3] 1,000 unit PO QAM triamcinolone acetonide 0.1 % topical cream 1 applic TOPICAL BID levocetirizine 5 mg PO HS methylprednisolone [Medrol (Bladimir)] 4 mg PO UD Continue as directed alendronate 70 mg tablet 70 mg PO WEEKLY methylprednisolone [Medrol (Bladimir)] 4 mg PO UD ASK your surgeon for instructions celecoxib 200 mg capsule 200 mg PO QAM STOP taking 24 hours before surgery triamcinolone acetonide 0.1 % topical cream 1 applic TOPICAL BID DO NOT take the morning of surgery losartan 50 mg tablet 50 mg PO QAM montelukast 10 mg tablet 10 mg PO QAM calcium carbonate [Calcium 600] 600 mg PO QAM cholecalciferol (vitamin D3) [Vitamin D3] 1,000 unit PO QAM Take evening before surgery levocetirizine 5 mg PO HS Other Notes If you have any questions please call us at [phone] or [phone] or [phone] or [phone]
--- NOTE | 2020-09-21 11:07 | Anesthesiology Consultation ---
Date of Service September 21, 2020 Assessment & Plan (1) Encounter for pre-operative examination: COVID Status: As of 09/21 assessment, patient denies travel to endemic area, known exposure/sick contacts, or symptoms of COVID19. Patient instructed that they and their household members must follow strict social distancing guidelines, wear a mask in public and avoid travel for 14 days prior to surgery. Preoperative COVID19 testing to be completed prior to surgery per surgeon's ar rangements (10/14 at [facility] per pt). Patient made aware to self-isolate as much as possible between COVID testing and surgery. Chart Review Chart Review: Acceptable Risk for Surgery and Patient seen in Pre Admission Testing Teaching & Discussion Instructed NPO after midnight before surgery, except medications with 15 cc of water. Medication instructions provided according to the PAT guidelines. History Surgery Operation Date: 10/20/20 09:10 Proposed Procedures p Right Total Knee Arthroplasty - Celestine Salmeron MD Height/Weight Height: 5 ft 6 in Weight: 53.1 kg Allergies Allergy/AdvReac Type Severity Reaction Status Date / Time narcotics AdvReac Mild CONSTIPATIO Uncoded 09/17/20 11:02 N SCENTED PRODUCTS AdvReac Mild Cough Uncoded 09/17/20 11:02 Medications Home Medications Medication Instructions Recorded Confirmed Last Taken alendronate 70 mg tablet 70 mg PO WEEKLY #10 tab 04/05/20 09/17/20 08/11/20 losartan 50 mg tablet 50 mg PO QAM #30 tab 04/12/20 09/17/20 08/12/20 montelukast 10 mg tablet 10 mg PO QAM #30 tab 04/12/20 09/17/20 08/11/20 celecoxib 200 mg capsule 200 mg PO QAM cap 05/13/20 09/17/20 08/11/20 calcium carbonate [Calcium 600] 600 mg PO QAM 08/09/20 09/17/20 08/11/20 cholecalciferol (vitamin D3) 1,000 unit PO QAM 08/09/20 09/17/20 08/11/20 [Vitamin D3] triamcinolone acetonide 0.1 % 1 applic TOPICAL BID #30 g 09/15/20 09/17/20 Unknown topical cream levocetirizine 5 mg PO HS 09/17/20 09/17/20 Unknown methylprednisolone [Medrol (Bladimir)] 4 mg PO UD 09/17/20 09/17/20 Unknown Past Medical History Medical History Anxiety CONTROLLED WITHOUT MEDS History of basal cell carcinoma HTN (hypertension) Osteoarthritis Raynaud's disease Scoliosis Vertigo HX OF, NOT CURRENT PROBLEM Exercise / Class Metabolic Activity II 4-5 Yardwork/Stairs/Walk up hill Past Family History Family History Family/Other Hypercholesteremia Hypertension Acute colitis Mother Cardiac disorder H/O: hysterectomy Hypertension Family history of diabetes mellitus Father Cardiac disorder Brother Prostate cancer Hearing loss Other No family history of adverse response to anesthesia Past Surgical History Surgical History Fusion of spine L4 L5 History of anesthesia reaction VERY SLOW TO COME OUT OF WITH ANESTHESIA 2 YR AGO WITH CERVICAL FUSION, DID NOT WAKE UP SLOWLY, FASTER WAKE UP THAN USUAL History of arthroscopy B/L SHOULDER FOR BONE SPURS History of colonoscopy History of facial surgery FACE LIFT History of fusion of cervical spine C5-C7 normal ROM History of thumb surgery B/L [facility] JOINT ARTHROPLASTY Status post left knee replacement 11/2019 Past Anesthesia History No Hx of Anesthesia Complications and No Family Hx of Anesthesia Complications History of PONV No Hx of PONV and No Hx of Motion Sickness Social History Smoking Status: Former smoker tobacco type: cigarettes Smoking cigarettes per day: QUIT 40 YEARS AGO; 2PPD X 3-4 YEARS Do You Dip or Chew Tobacco: No Hx Alcohol Use: Yes Alcohol type: beer alcohol intake frequency: holidays/special occasions only Hx Substance Use: No substance use type: does not use Review of Systems Pt denies any recent chest pain, shortness of breath, palpitations, cough, fever, URI, or uncontrolled acid reflux. Physical Exam Vital Signs BP: 137/95 (pt reports diastolic is abnormally high for her, she does monitor BP at home) P: 75bpm SPO2: unable to get a reading, pt has Raynauds T: 98.8 F R: 16 ENMT Mouth: no dental restorations, no chipped teeth and no loose teeth Thyromental Distance: > or= 3.5 Finger Breadths Mallampati Class: II Neck normal visual inspection; neck extension not limited Respiratory normal respiratory effort Auscultation: lungs clear to auscultation bilaterally Cardiovascular Rate/Rhythm: regular rate and regular rhythm Heart Sounds: no murmur Extremities: no edema Testing Laboratory Results 09/21/20 11:08 09/21/20 11:08 PT 10.5 Seconds (9.0-12.0) 09/21/20 11:08 INR 1.0 (0.9-1.1) 09/21/20 11:08 APTT 26.0 Seconds (21.0-31.0) 09/21/20 11:08 Hemoglobin A1c 5.7 % (4.5-5.6) H 09/21/20 11:08 Urine Color Yellow 09/21/20 11:08 Urine Appearance Clear (Clear) 09/21/20 11:08 Urine pH 6.5 (4.5-7.5) 09/21/20 11:08 Ur Specific [place] 1.012 (1.000-1.030) 09/21/20 11:08 Urine Protein Negative (Negative) 09/21/20 11:08 Urine Glucose (UA) Negative (Negative) 09/21/20 11:08 Urine Ketones Negative (Negative) 09/21/20 11:08 Urine Nitrite Negative (Negative) 09/21/20 11:08 Ur Leukocyte Esterase Negative (Negative) 09/21/20 11:08 Blood Type O Positive 09/21/20 11:08 Antibody Screen NEGATIVE 09/21/20 11:08 Electrocardiogram Date: 12/09/19 Findings: + NSR @ (61bpm) Possible LAE. No change from 12/12/18. Chest X-Ray Date: 12/09/19 IMPRESSION: Linear right middle lobe opacity, likely atelectatic. Otherwise negative chest. Scoliosis.
[2020-09-21 12:09] LABS: Appearance Urine Clear (Clear); Basophils # (auto) 0.06 K/uL (0-0.2); Basophils % (auto) 1.3 %; Bilirubin Urine Negative (Negative); Blood Urine Negative (Negative); Color Urine Yellow; Eosinophils # (auto) 0.05 K/uL (0-0.5); Eosinophils % (auto) 1.1 %; Glucose Urine UA Negative (Negative); Hemoglobin 14.4 g/dL (12.0-16.0); Immature Granulocytes # (auto) 0.01 K/uL (0.00-0.02); Immature Granulocytes % (auto) 0.2 %; Ketones Urine Negative (Negative); Leukocyte Esterase Urine Negative (Negative); Lymphocytes # (auto) 1.25 K/uL (1.2-3.4); Lymphocytes % (auto) 27.8 %; Mean Corpuscular Hgb Conc 33.5 g/dL (32-36); Mean Corpuscular Volume 89.6 fL (80-100); Mean Platelet Volume 9.6 fL (7.4-10.4); Monocytes # (auto) 0.41 K/uL (0.11-0.59); Monocytes % (auto) 9.1 %; Neutrophils # (auto) 2.71 K/uL (1.4-6.5); Neutrophils % (auto) 60.5 %; Nitrite Urine Negative (Negative); Platelet Count 257 K/uL (130-400); Protein Urine Negative (Negative); RDW Coefficient of Variation 13.1 % (11.5-14.5); RDW Standard Deviation 42.7 fL (36.4-46.3); Specific Gravity Urine 1.012 (1.000-1.030); Urobilinogen Urine Negative (Negative); White Blood Count 4.49 K/uL (4.8-10.8); pH Urine 6.5 (4.5-7.5)
[2020-09-21 12:21] LABS: Partial Thromboplastin Ratio 0.9; Prothrombin Time 10.5 Seconds (9.0-12.0)
[2020-09-21 13:10] LABS: Albumin Level 4.3 gm/dl (3.4-5.0); BUN Creatinine Ratio 28.3 (10-20); Calcium 9.5 mg/dl (8.5-10.1); Creatinine Clr Calc Pharmacy 71.6 ml/min; Est GFR (African American) 106.8; Est GFR (Non-African American) 92.2; Potassium 3.9 mmol/L (3.5-5.1)
[2020-09-21 13:12] LABS: Estimated Average Glucose 117 mg/dl; Hemoglobin A1C 5.7 % (4.5-5.6)
--- NOTE | 2020-10-19 13:57 | History and Physical Report ---
DATE OF ADMISSION: 10/20/2020 CHIEF COMPLAINT: Chronic right knee pain. HISTORY OF PRESENT ILLNESS: This is a 70-year-old female patient of Dr. Salmeron'jean marie complaining of chronic right knee pain, longstanding, now progressively getting worse. The patient has failed conservative treatment including intraarticular injections, anti-inflammatories and the use of a home exercise program. The patient has increased pain with weightbearing activities and her pain does interfere with her activities of daily living. The patient has been diagnosed with end-stage osteoarthritis per clinical and radiographic exams. The patient wished to proceed with a right total knee arthroplasty. PAST MEDICAL HISTORY: Hypertension, osteoarthritis, spine problems, neck problems, sciatica. SOCIAL HISTORY: Nonsmoker. Alcohol, none. PAST SURGICAL HISTORY: Lumbar and cervical fusions, left knee replacement, bilateral thumb surgeries. FAMILY HISTORY: Noncontributory. REVIEW OF SYSTEMS: Chronic right knee pain and instability. Otherwise, denies any shortness of breath, chest pain, nausea, vomiting or any other joint complaints. MEDICATIONS: Singulair 10 mg daily, losartan 50 mg daily, Celebrex 200 mg twice daily, calcium carbonate and vitamin D3 daily, Fosamax 70 mg weekly. ALLERGIES: No known drug allergies. PHYSICAL EXAMINATION: GENERAL: Well-developed, alert, well-nourished 70-year-old female in no acute distress. She is alert and oriented x3 and pleasant. HEENT: Normocephalic, atraumatic. Extraocular motions are intact. Pupils are equal and reactive to light. HEART: Regular rate and rhythm, no murmurs. LUNGS: Clear. ABDOMEN: Soft, nontender, bowel sounds present. EXTREMITIES: Right knee range of motion 0-125. Neutral alignment, mild tenderness, mild effusion, positive crepitation, 5/5 strength. Neurologically and neurovascularly is intact in the right lower extremity. DIAGNOSES: Right knee end-stage osteoarthritis, hypertension, osteoarthritis, spine problems, neck problems, sciatica. PLAN: The patient was advised of her diagnosis. Indications, risks, benefits, postop course have all been reviewed. The patient wished to proceed with a right total knee arthroplasty. Necessary consent forms, preoperative testing and clearances will be obtained.
[~2020-10-20 07:42] MED LIST changes: +BUPIVACAINE 0.25% 30 ML VIAL ONE; +BUPIVACAINE 0.5 % 5 MG/1 ML PF 10ML VIAL ONE; -CEFAZOLIN 1000MG 1,000 MG/7.5 ML SYR IV SCH; +FAMOTIDINE 20 MG TAB PO SCH; +GABAPENTIN 300 MG CAP PO SCH; -GABAPENTIN 300 MG PO SCH; -HYDROmorphone INJ 2 MG/ML SYR/VIAL ONE; -LR 15ML/HR IV SCH; +LR 500ML BOLUS, THEN 15ML/HR IV SCH; +METOCLOPRAMIDE HCL 10 MG TABLET PO SCH; -MIDAZOLAM HCL 1 MG/ML 2ML VIAL ONE; +ROPIVACAINE 0.5% HCL/PF 150 MG, BUPIVACAINE 0.5% MPF 30 ML, EPINEPHrine 30MG/30ML (OR U... INSTIL SCH; +TRANEXAMIC ACID 1,000 MG **IV Intra-op IV SCH; +TRANEXAMIC ACID 1,000 MG **IV Pre-op IV SCH; +ceFAZolin 1000MG 1,000 MG/7.5 ML SYR IV SCH; +dexAMETHasone 4 MG TAB PO SCH; -fentaNYL citrate 100 MCG/2 ML VIAL ONE
[2020-10-20] MEDS ORDERED: PROPOFOL IV EMULSION 10 MG/ML 20 ML VIAL IV ONE (07:56)
[2020-10-20] MEDS ORDERED: fentaNYL citrate 100 MCG/2 ML VIAL ONE (07:56)
[2020-10-20] MEDS ORDERED: MIDAZOLAM HCL 1 MG/ML 2ML VIAL ONE (07:56)
[2020-10-20] MEDS ORDERED: LIDOCAINE HCL 2% 2 ML VIAL/AMP(20MG/ML) INFIL ONE (07:56)
--- NOTE | 2020-10-20 08:52 | History & Physical Bridge Note ---
Date of Service October 20, 2020 History & Physical Bridge Note I have examined the patient, reviewed the History & Physical and in the interval since the performance of the History & Physical I have noted the following changes of clinical significance: no changes noted
[2020-10-20] MEDS ORDERED: ORTHO JOINT ANESTHETIC ONE (08:56)
[2020-10-20] MEDS ORDERED: BACITRACIN INJ 50,000 UNIT VIAL ONE (08:57)
[2020-10-20] MEDS ORDERED: ATROPINE SULFATE 0.1 MG/ML 10ML SYR IV PRN (10:25)
[2020-10-20] MEDS ORDERED: ePHEDrine sulfate 50 MG/ML AMP IV PRN (10:25)
--- NOTE | 2020-10-20 11:11 | Post Operative Brief Note ---
Immediate Post Op Note v1 Date of Surgery October 20, 2020 Pre & Post Diagnosis Operation Date: 10/20/20 09:50 Pre-Op Diagnosis: Osteoarthritis, Right Knee Post-Op Diagnosis: Osteoarthritis, Right Knee I identified the patient and participated in the time-out.: Yes Procedure Operation Date: 10/20/20 09:50 Actual Procedures p Right Total Knee Arthroplasty(Right) - Celestine Salmeron MD Surgeon Celestine Salmeron MD Ruling Machine Set Up Operator Karthikeyan CARY Estimated Blood Loss 5 Findings Consistent with Post-Op Diagnosis Specimens Bone cuts Drains Hemovac Drain (dual trocar) Anesthesia Type MAC Spinal Regional Complications none Disposition Accompanied Patient To Recovery: No Disposition: Recovery Room Overlapping Procedure I was immediately available: during the entire case.
--- NOTE | 2020-10-20 11:34 | Operative Report ---
Post Operative Report Pre & Post Diagnosis Operation Date: 10/20/20 09:50 Pre-Op Diagnosis: Osteoarthritis, Right Knee Post-Op Diagnosis: Osteoarthritis, Right Knee I identified the patient and participated in the time-out.: Yes Procedure Operation Date: 10/20/20 09:50 Actual Procedures p Right Total Knee Arthroplasty(Right) - Celestine Salmeron MD Surgeon Celestine Salmeron MD Machine Filler Karthikeyan CARY Estimated Blood Loss 5 Findings Consistent with Post-Op Diagnosis Specimens Bone cuts Drains 2 Hemovac Anesthesia Type MAC Spinal Regional Complications none Disposition Accompanied Patient To Recovery: No Disposition: Recovery Room Indications 62-year-old female with advanced osteoarthritis of her right knee with [id number] patellofemoral osteoarthritis and bone loss of the patella. She also has some tricompartmental osteoarthritis and chondrocalcinosis. Description of Procedure Patient was taken to the operating room placed supine on the operating table and anesthetized under spinal MAC regional anesthesia. Exam under anesthesia demonstrated neutral alignment moderate effusion [id number] patellofemoral crepitation lateral alined patella good range of motion. A pneumatic tourniquet was placed about the thigh of the right lower extremity. The right lower extremity was prepped and draped in usual fashion. The leg was elevated exsanguinated with an Esmarch bandage and the pneumatic was raised to 275 mm mercury. An anterior incision was made across the right knee. The skin was i ncised longitudinally subcutaneous flaps were elevated and an incision was made through the medial retinaculum extending up into the mid third of the quadriceps tendon and extended down to the medial tibial tubercle. Intra-articular findings demonstrated severe patellofemoral osteoarthritis with ridging and bone loss patella lateral facet. There are tricompartmental arthritic changes with chondrocalcinosis.. The knee was exposed by excising the infrapatellar fat pad, excising the meniscal remnants and anterior cruciate ligament. Any inflamed synovial tissue was resected. The fat pad over the anterior femur was resected for placement of the component in that area. The lateral synovial bands were release. The femur was exposed. The custom femoral cutting block was pinned in position. The distal femoral cutting block was applied. The distal femoral cut was made with the oscillating saw. It was noted that the bone quality was osteoporotic. The size 9, 4-in-1 cutting block was placed. The anterior and posterior chamfer cuts were made. The knee was extended and a subperiosteal peel lateral release was performed around the patella. The patella width was measured and width was reproduced using freehand cut technique. Because of the significant bone loss the cut was made just a few millimeters above the depth of the bone loss of the distal ridge below the level of the cut that was curetted and later filled in with cement upon fixation. The excess lateral facet was beveled off to prevent any impingement. The 35 x 9 millimeter symmetrical patella was used. 3 drill holes are made for the pegs. The tibia was exposed. A custom tibial cutting block was positioned and drill holes were made for the cutting guide. Cutting guide was placed and the proximal cut was made with the oscillating saw. All osteophytes were resected. The lamina general engineering teacher was used to assess ligamentous balance and the ligaments were balanced in extension and flexion. This required some medial and posterior medial release. The tibia was reexposed and measured for a size D tibial component. This was externally rotated in line with the tibial tubercle and the fixation pins were drilled. The proximal tibia was fashioned with the drill and punch. The size 9 CR femoral trial was inserted. The trial MC inserts were used. The 10 mm insert gave balanced ligaments through full range of motion. The patella tracked centrally. the trials were removed. The orthomix anesthetic cocktail was injected per protocol. The knee was then copiously irrigated with pulsatile lavage antibiotic solution with bacitracin. The final components were cemented with Simplex cement. The final components were [employer] persona 9 narrow right CR femoral component, D tibia component, MC 10 polyethylene, 35 x 9 symmetrical patella. After the cement cured with the knee in full extension the Betadine soak was used per protocol. The knee joint was copiously irrigated with antibiotic solution with bacitracin. 2 drains were brought out laterally and connected to a Hemovac. The quadriceps tendon and medial retinaculum were closed with interrupted [id number] #1 Vicryl sutures. The knee was taken through a full range of motion and repair was secure. The subcutaneous tissues were closed with 2-0 Vicryl sutures and skin was closed with helena. Silverlon sterile dressing was applied and the patient tolerated the procedure well. Karthikeyan CARY my physician assistant to the vice president, assisted in soft tissue retraction instrument management leg positioning the closure and will participate in the postoperative care of the patient. I attest to the content of the Intraoperative Record and any orders documented therein. Any exceptions are noted below.
--- NOTE | 2020-10-20 12:01 | XRay Report ---
TWO VIEWS RIGHT KNEE CLINICAL HISTORY: Postoperative examination. FINDINGS: AP and crosstable lateral portable views of the right knee are obtained. A right knee arthr oplasty is in near anatomic alignment. There has been undersurface remodeling of the patella. No acut e fracture is seen. There are expected postoperative changes around the knee including skin clips, a surgical drain, soft tissue edema, and subcutaneous gas. IMPRESSION: Expected postoperative changes status post right knee arthroplasty. No acute fracture is seen. ACT 112: Negative or not required by law. Electronically signed by: Gregg Thakkar M.D. 10/20/2020 11:59 AM
--- NOTE | 2020-10-20 12:17 | Anesthesiology Progress Note ---
Date of Service October 20, 2020 Anesthesia Post Procedure Vital Signs Vital Signs: Temp Pulse Pulse Resp BP Pulse Ox 10/20/20 11:55 36.7 C 64 15 110/74 99 10/20/20 11:45 60 14 117/72 100 10/20/20 11:35 64 13 122/68 100 10/20/20 11:25 65 17 109/67 100 10/20/20 11:16 36.5 C 77 16 109/66 100 10/20/20 08:39 37.2 C 78 20 135/80 100 Transfer of Care Handoff Completed per policy Notes Mental Status: alert / awake / arousable and participated in evaluation Nausea / Vomiting: adequately controlled Pain: adequately controlled Airway Patency, RR, SpO2: stable & adequate BP & HR: stable & adequate Hydration State: stable & adequate Neuraxial Anesthesia: was administered and sensory block is resolving Anesthetic Complications: no major complications apparent and Pt Satisfied with anesthetic care
[2020-10-20] MEDS ORDERED: ONDANSETRON INJ 2 MG/ML 2 ML VIAL IV PRN (12:36)
[2020-10-20] MEDS ORDERED: METOCLOPRAMIDE HCL INJ 5 MG/ML 2 ML VIAL IV PRN (12:36)
[2020-10-20] MEDS ORDERED: bisacodyL 10 MG SUPP PR PRN (12:36)
[2020-10-20] MEDS ORDERED: MAGNESIUM HYDROXIDE SUSP 30 ML UDC PO PRN (12:36)
[2020-10-20] MEDS ORDERED: NALOXONE HCL 0.4 MG/1 ML VIAL/CARP IV PRN (12:36)
[2020-10-20] MEDS ORDERED: HYDROmorphone INJ 0.5 MG/0.5 ML SYR IV PRN (12:36)
[2020-10-20] MEDS ORDERED: SODIUM CHLORIDE 0.9% 1000ML 1,000 ML IV SCH (12:36)
--- NOTE | 2020-10-20 13:14 | Consultation ---
Date of Consultation October 20, 2020 Assessment & Plan (1) History of arthroplasty of right knee: 70yo C female with history of HTN s/p right total knee arthroplasty performed today by Dr. Salmeron. Surgery was well tolerated, no complications. Patient is doing well with no complaints. -Management of pain, nausea and bowel regimen per surgical team -ASA 81mg po BID per primary team for DVT ppx -Post-operative PT per primary team Present on Admission?: Yes (2) Hypertension: Blood pressure adequately controlled, currently 133/87 -Amlodipine 5mg po daily to start tomorrow AM 0900 -Losartan 50mg po qAM to start tomorrow at 0900 Present on Admission?: Yes (3) Asthma: Chronic. Stable and well controlled. No cough/SOB or wheeze at present -Continue to monitor Thank you for allowing us to participate in the care of this patient. [facility] for [facility]. Please do not hesitate to contact us with any additional questions or concerns. Present on Admission?: Yes History of Present Illness Reason for Consultation: Post-operative medical management Attending Physician: Celestine Salmeron MD History of Present Illness Tabitha Song is a pleasant 70yo C female s/p total right knee arthroplasty performed today by Dr. Salmeron. The operation was performed under MAC/spinal, minimal blood loss, no immediate complications identified. Patient is doing well with no complaints. She is sitting up in bed eating lunch. Denies nausea or pain. Still with anesthesia effects - no BM/flatus/ambulation or UOP as of yet. Pre-operative Covid-19 test from 10/14/20 NEGATIVE Allergies Allergy/AdvReac Type Severity Reaction Status Date / Time narcotics AdvReac Mild CONSTIPATIO Uncoded 10/20/20 08:08 N SCENTED PRODUCTS AdvReac Mild Cough Uncoded 10/20/20 08:08 Home Medications Medication Instructions Recorded Confirmed Type alendronate 70 mg tablet 70 mg PO WEEKLY #10 tab 04/05/20 10/20/20 Rx losartan 50 mg tablet 50 mg PO QAM #30 tab 04/12/20 10/20/20 Rx montelukast 10 mg tablet 10 mg PO QAM #30 tab 04/12/20 10/20/20 Rx celecoxib 200 mg capsule 200 mg PO QAM cap 05/13/20 10/20/20 History calcium carbonate [Calcium 600] 600 mg PO QAM 08/09/20 10/20/20 History cholecalciferol (vitamin D3) 1,000 unit PO QAM 08/09/20 10/20/20 History [Vitamin D3] amlodipine 5 mg tablet 5 mg PO DAILY #30 tab 09/30/20 10/20/20 Rx acetaminophen [Tylenol] 325 mg PO QID PRN 10/20/20 10/20/20 History Patient History Medical History (Updated 10/20/20 @ 13:09 by Randi Hinkle DO) Anxiety CONTROLLED WITHOUT MEDS History of basal cell carcinoma HTN (hypertension) Osteoarthritis Raynaud's disease Scoliosis Vertigo HX OF, NOT CURRENT PROBLEM Surgical History (Updated 10/20/20 @ 13:05 by Randi Hinkle DO) Fusion of spine L4 L5 History of anesthesia reaction VERY SLOW TO COME OUT OF WITH ANESTHESIA 2 YR AGO WITH CERVICAL FUSION, DID NOT WAKE UP SLOWLY, FASTER WAKE UP THAN USUAL History of arthroscopy B/L SHOULDER FOR BONE SPURS History of colonoscopy History of facial surgery FACE LIFT History of fusion of cervical spine C5-C7 normal ROM History of thumb surgery B/L [facility] JOINT ARTHROPLASTY Status post left knee replacement 11/2019 Family History Family/Other Hypercholesteremia Hypertension Acute colitis Mother Cardiac disorder H/O: hysterectomy Hypertension Family history of diabetes mellitus Father Cardiac disorder Brother Prostate cancer Hearing loss Other No family history of adverse response to anesthesia Social History Smoking Status: Former smoker Cigarettes Per Day: QUIT 40 YEARS AGO; 2PPD X 3-4 YEARS; Second Hand Exposure: No; Do You Dip or Chew Tobacco: No; Tobacco Cessation Education Requested by Patient: No Hx Alcohol Use: Yes Alcohol type: other Hx Substance Use: No Preferred Language: Danish Communication Ability: Effective Automatic Buffing Wheel Former Required: No Beliefs That Will Affect Care: None marital status: Single Current Living Situation: Alone Other Information That Helps Us Care for You: No Feels Safe at Home: Yes Safety Concerns: Feels Safe At This Time Assistive Devices: Walker Review of Systems Review of Systems: All systems reviewed & are unremarkable except as noted in HPI & below Physical Exam Physical Exam: General: patient resting comfortably, NAD, non-toxic in appearance, AA&O x 4 Skin: warm, dry, intact, no rashes or lesions HEENT: NC/AT, PERRL, anicteric sclera, conjunctiva without injection, external ear normal to inspection and nontender, nares patent, moist mucus membranes, dentition intact, no oropharyngeal lesions, neck supple, trachea midline, no LAD, no thyromegaly, no JVD Heart: +S1/S2, regular, no m/r/g Lungs: equal air entry bilaterally, no rales/rhonchi/wheezes Abd: +BS, soft, NT/ND, no masses/organomegaly/ascites Ext: warm, 2+ pulses in UE/LE bilaterally, no clubbing/cyanosis or edema, RLE with dressing in place, clean/dry/intact Neuro: +sensation of RLE, 2+ pulses Results & Data ([facility]) Vital Signs (Past 12 Hours) Vital Signs Temp Pulse Pulse Resp BP Pulse Ox 10/20/20 12:30 36.5 C 65 16 121/76 98 10/20/20 12:15 36.7 C 63 18 120/71 97 10/20/20 12:05 36.7 C 57 L 16 114/70 97 10/20/20 11:55 36.7 C 64 15 110/74 99 10/20/20 11:45 60 14 117/72 100 10/20/20 11:35 64 13 122/68 100 10/20/20 11:25 65 17 109/67 100 10/20/20 11:16 36.5 C 77 16 109/66 100 10/20/20 08:39 37.2 C 78 20 135/80 100 Laboratory Results Lab Results 09/21/20 09/21/20 09/21/20 Range/Units 11:08 11:08 11:08 WBC 4.49 L (4.8-10.8) K/uL RBC 4.80 (4.2-5.4) M/uL Hgb 14.4 (12.0-16.0) g/dL Hct 43.0 (37-47) % MCV 89.6 (80-100) fL MCH 30.0 (25-34) pg MCHC 33.5 (32-36) g/dL RDW Std Deviation 42.7 (36.4-46.3) fL RDW Coeff of Sulema 13.1 (11.5-14.5) % Plt Count 257 (130-400) K/uL MPV 9.6 (7.4-10.4) fL Immature Gran % (Auto) 0.2 % Neut % (Auto) 60.5 % Lymph % (Auto) 27.8 % Woodford % (Auto) 9.1 % Eos % (Auto) 1.1 % Baso % (Auto) 1.3 % Neut # (Auto) 2.71 (1.4-6.5) K/uL Lymph # (Auto) 1.25 (1.2-3.4) K/uL Woodford # (Auto) 0.41 (0.11-0.59) K/uL Eos # (Auto) 0.05 (0-0.5) K/uL Baso # (Auto) 0.06 (0-0.2) K/uL Immature Gran # (Auto) 0.01 (0.00-0.02) K/uL PT 10.5 (9.0-12.0) Seconds INR 1.0 (0.9-1.1) APTT 26.0 (21.0-31.0) Seconds PTT Ratio 0.9 Sodium (136-145) mmol/L Potassium (3.5-5.1) mmol/L Chloride (98-107) mmol/L Carbon Dioxide (21-32) mmol/L Anion Gap (3-11) BUN (7-18) mg/dl Creatinine (0.6-1.2) mg/dl Est Cr Clr Drug Dosing ml/min Est GFR ( Amer) Est GFR (Non-Af Amer) BUN/Creatinine Ratio (10-20) Glucose (70-99) mg/dl Estimat Average Glucose mg/dl Hemoglobin A1c (4.5-5.6) % Calcium (8.5-10.1) mg/dl Albumin (3.4-5.0) gm/dl Urine Color Urine Appearance (Clear) Urine pH (4.5-7.5) Ur Specific Jones (1.000-1.030) Urine Protein (Negative) Urine Glucose (UA) (Negative) Urine Ketones (Negative) Urine Blood (Negative) Urine Nitrite (Negative) Urine Bilirubin (Negative) Urine Urobilinogen (Negative) Ur Leukocyte Esterase (Negative) Blood Type O Positive Antibody Screen NEGATIVE 09/21/20 09/21/20 09/21/20 Range/Units 11:08 11:08 11:08 WBC (4.8-10.8) K/uL RBC (4.2-5.4) M/uL Hgb (12.0-16.0) g/dL Hct (37-47) % MCV (80-100) fL MCH (25-34) pg MCHC (32-36) g/dL RDW Std Deviation (36.4-46.3) fL RDW Coeff of Sulema (11.5-14.5) % Plt Count (130-400) K/uL MPV (7.4-10.4) fL Immature Gran % (Auto) % Neut % (Auto) % Lymph % (Auto) % Woodford % (Auto) % Eos % (Auto) % Baso % (Auto) % Neut # (Auto) (1.4-6.5) K/uL Lymph # (Auto) (1.2-3.4) K/uL Woodford # (Auto) (0.11-0.59) K/uL Eos # (Auto) (0-0.5) K/uL Baso # (Auto) (0-0.2) K/uL Immature Gran # (Auto) (0.00-0.02) K/uL PT (9.0-12.0) Seconds INR (0.9-1.1) APTT (21.0-31.0) Seconds PTT Ratio Sodium 139 (136-145) mmol/L Potassium 3.9 (3.5-5.1) mmol/L Chloride 104 (98-107) mmol/L Carbon Dioxide 31 (21-32) mmol/L Anion Gap 4.0 (3-11) BUN 18 (7-18) mg/dl Creatinine 0.63 (0.6-1.2) mg/dl Est Cr Clr Drug Dosing 71.6 ml/min Est GFR ( Amer) 106.8 Est GFR (Non-Af Amer) 92.2 BUN/Creatinine Ratio 28.3 H (10-20) Glucose 86 (70-99) mg/dl Estimat Average Glucose 117 mg/dl Hemoglobin A1c 5.7 H (4.5-5.6) % Calcium 9.5 (8.5-10.1) mg/dl Albumin 4.3 (3.4-5.0) gm/dl Urine Color Yellow Urine Appearance Clear (Clear) Urine pH 6.5 (4.5-7.5) Ur Specific Jones 1.012 (1.000-1.030) Urine Protein Negative (Negative) Urine Glucose (UA) Negative (Negative) Urine Ketones Negative (Negative) Urine Blood Negative (Negative) Urine Nitrite Negative (Negative) Urine Bilirubin Negative (Negative) Urine Urobilinogen Negative (Negative) Ur Leukocyte Esterase Negative (Negative) Blood Type Antibody Screen Diagnostic Findings TWO VIEWS RIGHT KNEE CLINICAL HISTORY: Postoperative examination. FINDINGS: AP and crosstable lateral portable views of the right knee are obtained. A right knee arthroplasty is in near anatomic alignment. There has been undersurface remodeling of the patella. No acute fracture is seen. There are expected postoperative changes around the knee including skin clips, a ruiz rgical drain, soft tissue edema, and subcutaneous gas. IMPRESSION: Expected postoperative changes status post right knee arthroplasty. No acute fracture is seen. ACT 112: Negative or not required by law. Electronically signed by: Gregg Thakkar M.D. 10/20/2020 11:59 AM Dictated: 10/20/20 1159Transcribed: 10/20/20 1159 PG Care Time/CCT Total # of Minutes Spent Total Time Spent with Patient: Total time spent is greater than 50% in coordination of care (as documented) at patient's floor/unit and/or counseling patient: Coding Level of Care Code 94723 Inpt Consult Level 3 Diagnoses History of arthroplasty of right knee Z96.651 Hypertension I10 Hypertension type: essential hypertension Asthma J45.20 Asthma severity: mild Asthma persistence: intermittent Asthma complication type: uncomplicated (1) Hypertension Hypertension type: essential hypertension Qualified Code(s): I10 - Essential (primary) hypertension (2) Asthma Asthma severity: mild Asthma persistence: intermittent Asthma complication type: uncomplicated Qualified Code(s): J45.20 - Mild intermittent asthma, uncomplicated
[2020-10-20] MEDS: ACETAMINOPHEN 500 MG TAB PO SCH ×2 (14:52→21:35)
[2020-10-20] MEDS: ceFAZolin 1000MG 1,000 MG/7.5 ML SYR IV SCH (17:34)
[2020-10-20] MEDS: CeleBREX 200 MG CAP PO SCH (20:04)
[2020-10-20] MEDS: DOCUSATE SODIUM 100 MG CAP PO SCH (20:04)
[2020-10-20] MEDS: ASPIRIN 81 MG ECTAB PO SCH (20:04)
[2020-10-20] MEDS ORDERED: SENNA 8.6 MG TAB PO SCH (21:00)
[2020-10-20] MEDS: oxyCODONE HCL IR 5 MG TAB (IMMEDIATE RELEASE) PO PRN (21:34)
[2020-10-21] MEDS: ceFAZolin 1000MG 1,000 MG/7.5 ML SYR IV SCH (02:49)
[2020-10-21] MEDS: ACETAMINOPHEN 500 MG TAB PO SCH (05:39)
[2020-10-21 06:04] LABS: Hematocrit (blood only) 31.7 % (37-47); Hemoglobin 10.7 g/dL (12.0-16.0); Mean Corpuscular Hemoglobin 29.9 pg (25-34); Mean Corpuscular Hgb Conc 33.8 g/dL (32-36); Mean Corpuscular Volume 88.5 fL (80-100); Platelet Count 179 K/uL (130-400); RDW Coefficient of Variation 13.4 % (11.5-14.5); RDW Standard Deviation 43.3 fL (36.4-46.3); Red Blood Count 3.58 M/uL (4.2-5.4)
[2020-10-21 06:42] LABS: BUN Creatinine Ratio 23.9 (10-20); Calcium 8.5 mg/dl (8.5-10.1); Creatinine Clr Calc Pharmacy 74.8 ml/min; Est GFR (Non-African American) 93.1
--- NOTE | 2020-10-21 07:17 | Orthopedic Progress Note ---
Date of Service October 21, 2020 Assessment & Plan (1) History of arthroplasty of right knee: POD#1 Right TKA -PT/OT -DVT prophylaxis-SCDs, TEDs, ASA 81mg BID -Pain management -AM labs-hemoglobin at 10.7 this morning acute blood loss anemia likely due to surgical loss vs dilutional effect. She is asymptomatic. -D/C planning-planning on outpatient PT upon discharge. Discharge likely later today as long as therapy goes well. Admission and Anticipated Discharge Date Admission Date: October 20, 2020 Subjective Patient is POD#1 from her right knee replacement. She is doing well this morning, not having much pain. No complaints. She denies chest pain, sob, dizziness, n/v/d., Review of Systems Review of Systems: All systems reviewed & are unremarkable except as noted in HPI & below Physical Exam Physical Exam: Right knee dressing is c/d/i, hemovac in place. Toes are mobile, good dorsiflexion. No calf tenderness. Distally n/v status and sensation are intact. Constitutional: well developed and well nourished; no acute distress Results & Data ([facility]) Vital Signs (Past 12 Hours) Vital Signs Temp Pulse Resp BP Pulse Ox 10/21/20 03:18 36.5 C 62 14 132/77 94 10/21/20 00:01 36.7 C 58 L 14 139/87 98 10/20/20 19:59 36.8 C 62 16 104/60 98
[2020-10-21] MEDS ORDERED: MONTELUKAST SODIUM 10 MG TABLET PO SCH (09:00)
[2020-10-21] MEDS ORDERED: CHOLECALCIFEROL 1,000 UNITS 25 MCG TAB PO SCH (09:00)
[2020-10-21] MEDS ORDERED: amLODIPine BESYLATE 5 MG TAB PO SCH (09:00)
[2020-10-21] MEDS ORDERED: CALCIUM CARBONATE 1250MG TAB PO SCH (09:00)
[2020-10-21] MEDS ORDERED: MULTIVITAMIN TAB PO SCH (09:00)
[2020-10-21] MEDS ORDERED: LOSARTAN POTASSIUM 50 MG TAB PO SCH (09:00)
[2020-10-21] MEDS: DOCUSATE SODIUM 100 MG CAP PO SCH (09:05)
[2020-10-21] MEDS: CeleBREX 200 MG CAP PO SCH (09:06)
[2020-10-21] MEDS: ASPIRIN 81 MG ECTAB PO SCH (09:06)
[2020-10-21] MEDS ORDERED: oxyCODONE IR HOME PACK PO ONE (09:45)
[2020-10-21] MEDS: oxyCODONE HCL IR 5 MG TAB (IMMEDIATE RELEASE) PO PRN (10:24)
--- NOTE | 2020-10-21 22:07 | Discharge Summary ---
Date of Service October 21, 2020 Admission HPI Per Admitting Provider This is a 70-year-old female patient of Dr. Salmeron's complaining of chronic right knee pain, longstanding, now progressively getting worse. The patient has failed conservative treatment including intraarticular injections, anti-inflammatories and the use of a home exercise program. The patient has increased pain with weightbearing activities and her pain does interfere with her activities of daily living. The patient has been diagnosed with end-stage osteoarthritis per clinical and radiographic exams. The patient wished to proceed with a right total knee arthroplasty. Admission Exam Per Admitting Provider GENERAL: Well-developed, alert, well-nourished 70-year-old female in no acute distress. She is alert and oriented x3 and pleasant. HEENT: Normocephalic, atraumatic. Extraocular motions are intact. Pupils are equal and reactive to light. HEART: Regular rate and rhythm, no murmurs. LUNGS: Clear. ABDOMEN: Soft, nontender, bowel sounds present. EXTREMITIES: Right knee range of motion 0-125. Neutral alignment, mild tenderness, mild effusion, positive crepitation, 5/5 strength. Neurologically and neurovascularly is intact in the right lower extremity. Principal Diagnosis Right knee osteoarthritis Discharge Exam Right knee dressing is c/d/i, hemovac in place. Toes are mobile, good dorsiflexion. No calf tenderness. Distally n/v status and sensation are intact. Constitutional well developed and well nourished; no acute distress Discharge Data Allergies Allergy/AdvReac Type Severity Reaction Status Date / Time narcotics AdvReac Mild CONSTIPATIO Uncoded 10/20/20 08:08 N SCENTED PRODUCTS AdvReac Mild Cough Uncoded 10/20/20 08:08 Consultations 10/15/20 09:40 Consult Hospitalist Routine 10/20/20 12:36 Consult Case Management - Discharge Planning Routine Procedures Performed Operation Date: 10/20/20 09:50 Actual Procedures p Right Total Knee Arthroplasty(Right) - Celestine Salmeron MD Ordered Studies 10/20/20 05:00 US - OR guided needle placemen Routine Hospital Course (1) History of arthroplasty of right knee: Patient presented for same day admission following right total knee arthroplasty on 10/20/20. She tolerated procedure well. The Patient had an uneventful hospital course. Post-operatively, her activity was progressed and well tolerated. They participated in PT with ambulation distance of 325 feet. ROM of operative knee reached 80 degrees. Labs remained stable- lowest hemoglobin recorded:10.7. Dr. Randi Hinkle of medical service was consulted for medical management during admission. Pain controlled on oral medications. Please refer to daily progress notes and PT notes for complete details. After exam on 10/21/20, patient was felt to be stable for discharge home with plans on outpatient PT. Patient will f/u in the office in about 2 weeks for further evaluation including x-rays and incision check, sooner if having any issues or concerns. POD#1 Right TKA -PT/OT -DVT prophylaxis-SCDs, TEDs, ASA 81mg BID -Pain management -AM labs-hemoglobin at 10.7 this morning acute blood loss anemia likely due to surgical loss vs dilutional effect. She is asymptomatic. -D/C planning-planning on outpatient PT upon discharge. Discharge likely later today as long as therapy goes well. Lab Results 09/21/20 09/21/20 09/21/20 Range/Units 11:08 11:08 11:08 WBC 4.49 L (4.8-10.8) K/uL RBC 4.80 (4.2-5.4) M/uL Hgb 14.4 (12.0-16.0) g/dL Hct 43.0 (37-47) % MCV 89.6 (80-100) fL MCH 30.0 (25-34) pg MCHC 33.5 (32-36) g/dL RDW Std Deviation 42.7 (36.4-46.3) fL RDW Coeff of Sulema 13.1 (11.5-14.5) % Plt Count 257 (130-400) K/uL MPV 9.6 (7.4-10.4) fL Immature Gran % (Auto) 0.2 % Neut % (Auto) 60.5 % Lymph % (Auto) 27.8 % Tucker % (Auto) 9.1 % Eos % (Auto) 1.1 % Baso % (Auto) 1.3 % Neut # (Auto) 2.71 (1.4-6.5) K/uL Lymph # (Auto) 1.25 (1.2-3.4) K/uL Tucker # (Auto) 0.41 (0.11-0.59) K/uL Eos # (Auto) 0.05 (0-0.5) K/uL Baso # (Auto) 0.06 (0-0.2) K/uL Immature Gran # (Auto) 0.01 (0.00-0.02) K/uL PT 10.5 (9.0-12.0) Seconds INR 1.0 (0.9-1.1) APTT 26.0 (21.0-31.0) Seconds PTT Ratio 0.9 Sodium (136-145) mmol/L Potassium (3.5-5.1) mmol/L Chloride (98-107) mmol/L Carbon Dioxide (21-32) mmol/L Anion Gap (3-11) BUN (7-18) mg/dl Creatinine (0.6-1.2) mg/dl Est Cr Clr Drug Dosing ml/min Est GFR ( Amer) Est GFR (Non-Af Amer) BUN/Creatinine Ratio (10-20) Glucose (70-99) mg/dl Estimat Average Glucose mg/dl Hemoglobin A1c (4.5-5.6) % Calcium (8.5-10.1) mg/dl Albumin (3.4-5.0) gm/dl Urine Color Urine Appearance (Clear) Urine pH (4.5-7.5) Ur Specific Teague (1.000-1.030) Urine Protein (Negative) Urine Glucose (UA) (Negative) Urine Ketones (Negative) Urine Blood (Negative) Urine Nitrite (Negative) Urine Bilirubin (Negative) Urine Urobilinogen (Negative) Ur Leukocyte Esterase (Negative) Blood Type O Positive Antibody Screen NEGATIVE 09/21/20 09/21/20 09/21/20 Range/Units 11:08 11:08 11:08 WBC (4.8-10.8) K/uL RBC (4.2-5.4) M/uL Hgb (12.0-16.0) g/dL Hct (37-47) % MCV (80-100) fL MCH (25-34) pg MCHC (32-36) g/dL RDW Std Deviation (36.4-46.3) fL RDW Coeff of Sulema (11.5-14.5) % Plt Count (130-400) K/uL MPV (7.4-10.4) fL Immature Gran % (Auto) % Neut % (Auto) % Lymph % (Auto) % Tucker % (Auto) % Eos % (Auto) % Baso % (Auto) % Neut # (Auto) (1.4-6.5) K/uL Lymph # (Auto) (1.2-3.4) K/uL Tucker # (Auto) (0.11-0.59) K/uL Eos # (Auto) (0-0.5) K/uL Baso # (Auto) (0-0.2) K/uL Immature Gran # (Auto) (0.00-0.02) K/uL PT (9.0-12.0) Seconds INR (0.9-1.1) APTT (21.0-31.0) Seconds PTT Ratio Sodium 139 (136-145) mmol/L Potassium 3.9 (3.5-5.1) mmol/L Chloride 104 (98-107) mmol/L Carbon Dioxide 31 (21-32) mmol/L Anion Gap 4.0 (3-11) BUN 18 (7-18) mg/dl Creatinine 0.63 (0.6-1.2) mg/dl Est Cr Clr Drug Dosing 71.6 ml/min Est GFR ( Amer) 106.8 Est GFR (Non-Af Amer) 92.2 BUN/Creatinine Ratio 28.3 H (10-20) Glucose 86 (70-99) mg/dl Estimat Average Glucose 117 mg/dl Hemoglobin A1c 5.7 H (4.5-5.6) % Calcium 9.5 (8.5-10.1) mg/dl Albumin 4.3 (3.4-5.0) gm/dl Urine Color Yellow Urine Appearance Clear (Clear) Urine pH 6.5 (4.5-7.5) Ur Specific Teague 1.012 (1.000-1.030) Urine Protein Negative (Negative) Urine Glucose (UA) Negative (Negative) Urine Ketones Negative (Negative) Urine Blood Negative (Negative) Urine Nitrite Negative (Negative) Urine Bilirubin Negative (Negative) Urine Urobilinogen Negative (Negative) Ur Leukocyte Esterase Negative (Negative) Blood Type Antibody Screen 10/21/20 10/21/20 Range/Units 05:36 05:36 WBC 7.90 (4.8-10.8) K/uL RBC 3.58 L (4.2-5.4) M/uL Hgb 10.7 L (12.0-16.0) g/dL Hct 31.7 L (37-47) % MCV 88.5 (80-100) fL MCH 29.9 (25-34) pg MCHC 33.8 (32-36) g/dL RDW Std Deviation 43.3 (36.4-46.3) fL RDW Coeff of Sulema 13.4 (11.5-14.5) % Plt Count 179 (130-400) K/uL MPV 9.0 (7.4-10.4) fL Immature Gran % (Auto) % Neut % (Auto) % Lymph % (Auto) % Tucker % (Auto) % Eos % (Auto) % Baso % (Auto) % Neut # (Auto) (1.4-6.5) K/uL Lymph # (Auto) (1.2-3.4) K/uL Tucker # (Auto) (0.11-0.59) K/uL Eos # (Auto) (0-0.5) K/uL Baso # (Auto) (0-0.2) K/uL Immature Gran # (Auto) (0.00-0.02) K/uL PT (9.0-12.0) Seconds INR (0.9-1.1) APTT (21.0-31.0) Seconds PTT Ratio Sodium 139 (136-145) mmol/L Potassium 4.0 (3.5-5.1) mmol/L Chloride 109 H (98-107) mmol/L Carbon Dioxide 29 (21-32) mmol/L Anion Gap 1.0 L (3-11) BUN 15 (7-18) mg/dl Creatinine 0.61 (0.6-1.2) mg/dl Est Cr Clr Drug Dosing 74.8 ml/min Est GFR ( Amer) 108.0 Est GFR (Non-Af Amer) 93.1 BUN/Creatinine Ratio 23.9 H (10-20) Glucose 95 (70-99) mg/dl Estimat Average Glucose mg/dl Hemoglobin A1c (4.5-5.6) % Calcium 8.5 (8.5-10.1) mg/dl Albumin (3.4-5.0) gm/dl Urine Color Urine Appearance (Clear) Urine pH (4.5-7.5) Ur Specific Teague (1.000-1.030) Urine Protein (Negative) Urine Glucose (UA) (Negative) Urine Ketones (Negative) Urine Blood (Negative) Urine Nitrite (Negative) Urine Bilirubin (Negative) Urine Urobilinogen (Negative) Ur Leukocyte Esterase (Negative) Blood Type Antibody Screen Total Time Total Time Spent Total Time Spent (In Minutes): 20 Discharge Plan Discharge Items Patient Disposition: Home - Self-Care Reason For Visit: Osteoarthritis, Right Knee Discharge Diagnosis: Right knee osteoarthritis Activity: Per Instructions section Non-emergency contact: Surgeon Call non-emergency contact if: you have any medication questions, your pain is not controlled, your pain is worsening, your pain is concerning for you, you have a fever, your temperature is above 101, your wound has increased redness, your wound has increased drainage and your wound pain has increased Follow-up/Referrals: Baltazar Akhtar MD [Primary Care Provider] - Diet: Regular Addtl Attending Provider Instructions: ACTIVITY RECOMMENDATIONS: SELF CARE INSTRUCTIONS AFTER TOTAL KNEE REPLACEMENT A. You may need to continue a physical therapy program after discharge from the hospital. There are several options available to you. Your doctor will assist you in selecting the best one for you. 1. An out-patient facility 2 to 3 times a week for therapy or home therapy. 2. Continue working on all exercises taught to you in the hospital. Your goals should be to increase bending of your knee to 90 degrees and beyond and to fully straighten your knee. B. You may progress at your own pace from walking with a walker or crutches to a cane; then to no assistive devices. C. Make walking a part of your daily routine. Be up as much as comfortable with rest periods throughout the day. Rest with leg elevation is very important. Use the ice wrap frequently for the first 3-4 weeks. D. There are no restrictions on activities. You may ride in a car, shop, participate in bologna maker and all social activities. E. Wear the long elastic stockings (KESHIA hose) 20 hours a day for 2 weeks after surgery. They can be removed several times a day for laundering and for a bath. F. You may shower, no tub baths until cleared by your doctor. SPECIAL CARE INSTRUCTIONS: VERY IMPORTANT TO READ AND REVIEW A. There are a few signs you need to watch for after you are home. Call [facility] if you notice any of the followin. Increased severe knee pain. Some pain is expected especially when you exercise. 2. Increased swelling in your leg or knee; pain or swelling of the calf muscle in either lower leg. 3. Any fluid drainage from the incision. 4. Shortness of breath or chest pain. B. Please call [facility] at if you have any concerns or questions about your operation or recovery. The doctor or his nurse will return your call promptly. C. You must take antibiotics before dental work, bladder, bowel or other surgery. Your doctor will provide you with a permanent care to carry describing this precaution. IMPORTANT: * REMEMBER TO TAKE ASPIRIN, 81 MG, TWICE DAILY FOR 4 WEEKS UNLESS OTHERWISE DIRECTED. THIS IS YOUR BLOOD THINNER. * HIGH RISK PATIENTS MAY BE PRESCRIBED A STRONGER BLOOD THINNER. THIS WILL BE PROVIDED AT DISCHARGE. * CALL IF INCREASED PAIN, REDNESS, DRAINAGE OR FEVER GREATER THAT 101. * WEAR KESHIA HOSE 20 HOURS PER DAY FOR 2 WEEKS. * YOU MAY HAVE A LARGE BAND-AID LIKE DRESSING (SILVERON). THIS WILL REMAIN ON YOUR INCISION FOR 7 DAYS, THEN CAN BE REMOVED. IF INCISION IS LEAKING THROUGH DRESSING, CALL THE OFFICE . This is a large adhesive bandage that contains silver ions. This helps your incision heal by fighting off bacteria and protecting it from the outside environment. You are permitted to shower with this dressing. This will remain on your incision for 7 days and then should be removed. Some visible blood or drainage through the dressing window is normal. If there is significant drainage or leaking noted before the 7 days notify your doctor's office immediately. Once removed, keep incision clean and dry. If there is any drainage or redness noted, please call your surgeon. FOLLOW UP VISIT: If appointment is not already scheduled: Please call [facility] to make a follow-up appointment for 2 weeks after your surgery at . Stand-Alone Forms: My [employer], Opioid Pain Management, Smoking Cessation Medications and DC Order Prescriptions: New celecoxib [Celebrex] 200 mg Capsule 200 mg PO BID Qty: 60 RF: 0 aspirin 81 mg Tablet,Delayed Release (Dr/Ec) 81 mg PO BID Qty: 60 RF: 0 acetaminophen 500 mg Tablet 1,000 mg PO Q8 Qty: 60 RF: 0 oxycodone 5 mg Tablet 5 - 10 mg PO .Q4h-6h MDD 6 PRN (Reason: pain) Qty: 30 RF: 0 Continued alendronate [Fosamax] 70 mg tablet 70 mg PO WEEKLY Qty: 10 RF: 0 losartan 50 mg tablet 50 mg PO QAM Qty: 30 RF: 11 montelukast [Singulair] 10 mg tablet 10 mg PO QAM Qty: 30 RF: 11 amlodipine 5 mg tablet 5 mg PO DAILY Qty: 30 RF: 8 calcium carbonate [Calcium 600] 600 mg calcium (1,500 mg) Tablet 600 mg PO QAM RF: 0 cholecalciferol (vitamin D3) [Vitamin D3] 25 mcg (1,000 unit) Tablet 1,000 unit PO QAM RF: 0 Discontinued celecoxib [Celebrex] 200 mg capsule 200 mg PO QAM RF: 0 acetaminophen [Tylenol] 325 mg Capsule 325 mg PO QID PRN (Reason: Pain) RF: 0 Discharge Orders: Discharge Order (Routine); Ordered 10/21/20 Ordered By: Baltazar Mccoy/Other Patient Handouts: DVT Post Op Prevention, Understanding Knee Replacement, Knee Replacement Total Dc Admission Data Admit Date/Time: 10/20/20 11:39 Attending Provider: Celestine Salmeron Admit Provider: Celestine Salmeron Primary Care Provider: Baltazar Akhtar Other Providers: Carlo Garnica Thomas E. Other Interventions: Discharge Summary Assessment (RN) Last Done: 10/21/20 09:35
[2020-10-27] MEDS ORDERED: ALENDRONATE SODIUM 70 MG TAB PO SCH (06:30)
== END 2020-10-21 12:14 | disposition home or self-care (01) ==
LOC: 3E 07:42 → ASU 07:42